=== PATIENT | male | born 1980 | race American Indian/Alaskan Native ===

== ENCOUNTER 2017-05-22 16:17 | Emergency (ER) | payer MEDICARE ==
[2017-05-22 16:41] VITALS: BP 132/81
--- NOTE | 2017-05-22 16:41 | Emergency Department Report ---
Stated Complaint: PARANOID SHCIZOPHRENIA Time Seen by Provider: 05/22/17 16:39 - HPI History of Present Illness: PT states he has a hx of paranoid schizophrenic but he does not know why. PT states he has a prescription for medicine. PT brought into the ED with his uncle who states he has not been taking his medication. - ROS Review of Systems: + tangential thought process + audio hallucination - Exam Physical Exam: pt alert rapid speech MSE screening note: Focused history and physical exam performed. Due to findings the following was ordered: mhe, labs ED Disposition for MSE Condition: Stable
[2017-05-22 17:29] LABS: Basophils % (Auto) 0.7 % (0.0-1.8); Eosinophils % (Auto) 2.6 % (0.0-4.3); Hematocrit 43.3 % (35.5-45.6); Hemoglobin 14.6 gm/dl (11.8-15.2); Mean Corpuscular HGB Conc 34 % (32-34); Mean Corpuscular Hemoglobin 31 pg (28-32); Mean Corpuscular Volume 91 fl (84-94); Platelet Count 207 K/mm3 (140-440); Red Blood Count 4.78 M/mm3 (3.65-5.03); White Blood Count 6.1 K/mm3 (4.5-11.0)
[2017-05-22 17:41] LABS: Alanine Aminotransferase 9 units/L (7-56); Albumin 4.5 g/dL (3.9-5); Albumin/Globulin Ratio 1.7 %; Alkaline Phosphatase 54 units/L (35-129); Anion Gap 17 mmol/L; Blood Urea Nitrogen 16 mg/dL (9-20); Calcium 9.1 mg/dL (8.4-10.2); Carbon Dioxide 28 mmol/L (22-30); Chloride 97.9 mmol/L (98-107); Glucose 91 mg/dL (75-100); Potassium 4.5 mmol/L (3.6-5.0); Sodium 138 mmol/L (137-145); Total Protein 7.2 g/dL (6.3-8.2)
[2017-05-22 17:45] LABS: Urine Drugs of Abuse Note Disclamer
[2017-05-22 18:12] LABS: Bilirubin,Urine NEG (Negative); Blood,Urine NEG (Negative); Ketones,Urine NEG (Negative); Leukocyte Esterase,Urine NEG (Negative); Mucus,Urine FEW /HPF; Nitrite,Urine NEG (Negative); Protein,Urine <15 mg/dL mg/dL (Negative); WBC,Urine < 1.0 /HPF (0.0-6.0)
== END 2017-05-22 22:10 | disposition left against medical advice (07) ==
LOC: ED 16:17
DX: F20.0 Paranoid schizophrenia (principal); R44.0 Auditory hallucinations; Z53.21 Procedure and treatment not carried out due to patient leaving prior to being seen by health care provider
CPT/HCPCS: 36415; 80053; 80307; 81001; 85025; G0480; 80320

== ENCOUNTER 2017-08-15 00:09 | Emergency (ER) | payer MEDICARE ==
[2017-08-15 00:34] VITALS: BP 127/69
== END 2017-08-15 01:30 | disposition left against medical advice (07) ==
LOC: ED 00:09
DX: F29 Unspecified psychosis not due to a substance or known physiological condition (principal); Z53.21 Procedure and treatment not carried out due to patient leaving prior to being seen by health care provider

== ENCOUNTER 2017-08-25 10:25 | Emergency (ER) | payer MEDICARE ==
--- NOTE | 2017-08-25 11:25 | Emergency Department Report ---
ED Lower Extremity HPI - General Chief Complaint: Extremity Problem,Nontraumatic Stated Complaint: FEET CALLUSES Time Seen by Provider: 08/25/17 11:23 Source: patient Mode of arrival: Ambulatory Limitations: No Limitations - History of Present Illness Initial Comments: 36-year-old male past medical history paranoid schizophrenia presents with complaint of chronic calluses on his feet. Patient is requesting a prescription for Neosporin. Patient denies fevers or chills denies severe pain but states that he gets dull aching pain from time to time. Patient states that he spent a prolonged period of time on his feet. Denies pus drainage. Complaint: other (foto callouses) Injury: Foot: Right, Left - Related Data Home Medications Medication Instructions Recorded Confirmed Last Taken Trazodone HCl [traZODone] 300 mg PO BID 04/19/14 05/28/16 07/27/14 Previous Rx's Medication Instructions Recorded Last Taken Type buPROPion [Wellbutrin] 100 mg PO BID #60 tablet 08/05/16 Unknown Rx Butenafine HCl [Lotrimin Ultra] 1 applicatio TP QDAY #1 cream..g. 08/25/17 Unknown Rx Menthol [Gold Weber Medicated Foot] 1 applicatio TP QDAY #1 powder 08/25/17 Unknown Rx Neomycin/Bacitracin/Polymyxinb 1 applicatio TP BID #1 oint...g. 08/25/17 Unknown Rx [Neosporin Antibiotic Ointment] Allergies Allergy/AdvReac Type Severity Reaction Status Date / Time risperidone [From Risperdal] Allergy Shortness Verified 08/25/17 11:09 of Breath tomato Allergy Rash Verified 08/25/17 11:09 ED Review of Systems ROS: Stated complaint: FEET CALLUSES Other details as noted in HPI Constitutional: denies: chills, fever Eyes: denies: eye pain, eye discharge, vision change ENT: denies: ear pain, throat pain Respiratory: denies: cough, shortness of breath, wheezing Cardiovascular: denies: chest pain, palpitations Endocrine: no symptoms reported Gastrointestinal: denies: abdominal pain, nausea, diarrhea Genitourinary: denies: urgency, dysuria Musculoskeletal: denies: back pain, joint swelling, arthralgia Skin: denies: rash, lesions Neurological: denies: headache, weakness, paresthesias Psychiatric: denies: anxiety, depression Hematological/Lymphatic: denies: easy bleeding, easy bruising ED Past Medical Hx - Past Medical History Previous Medical History?: No Hx Renal Disease: Yes (Kidney Stones) Hx Sickle Cell Disease: Yes (sickle cell trait) Hx Kidney Stones: Yes Hx Psychiatric Treatment: Yes (Dede Tree Depression and Schizo) - Surgical History Past Surgical History?: No - Social History Smoking Status: Never Smoker Substance Use Type: None - Medications Home Medications: Home Medications Medication Instructions Recorded Confirmed Last Taken Type Trazodone HCl [traZODone] 300 mg PO BID 04/19/14 05/28/16 07/27/14 History buPROPion [Wellbutrin] 100 mg PO BID #60 tablet 08/05/16 Unknown Rx Butenafine HCl [Lotrimin Ultra] 1 applicatio TP QDAY #1 cream..g. 08/25/17 Unknown Rx Menthol [Gold Weber Medicated Foot] 1 applicatio TP QDAY #1 powder 08/25/17 Unknown Rx Neomycin/Bacitracin/Polymyxinb 1 applicatio TP BID #1 oint...g. 08/25/17 Unknown Rx [Neosporin Antibiotic Ointment] ED Physical Exam - General Limitations: No Limitations General appearance: alert, in no apparent distress - Head Head exam: Present: atraumatic, normocephalic - Eye Eye exam: Present: normal appearance, PERRL, EOMI - ENT ENT exam: Present: mucous membranes moist - Neck Neck exam: Present: normal inspection - Respiratory Respiratory exam: Present: normal lung sounds bilaterally. Absent: respiratory distress - Cardiovascular Cardiovascular Exam: Present: regular rate, normal rhythm. Absent: systolic murmur, diastolic murmur, rubs, gallop - GI/Abdominal GI/Abdominal exam: Present: soft, normal bowel sounds - Rectal Rectal exam: Present: deferred - Extremities Exam Extremities exam: Present: normal inspection, other (athlete's foot bilaterally. Plaques on feet suggestive of fungal infection bilaterally) - Back Exam Back exam: Present: normal inspection - Neurological Exam Neurological exam: Present: alert, oriented X3, CN II-XII intact, normal gait - Psychiatric Psychiatric exam: Present: normal affect, normal mood - Skin Skin exam: Present: warm, dry, intact, normal color. Absent: rash ED Course Vital Signs 08/25/17 11:10 Temperature 98.1 F Pulse Rate 105 H Respiratory 18 Rate Blood Pressure 130/80 O2 Sat by Pulse 98 Oximetry ED Lower Extremity MDM - Medical Decision Making A/P: Athlete's foot, foot calluses 1-gold weber foot powder, lotrimin. No signs of cellulitis on examination of feet. Distal pulses intact. Patient ambulatory without assistance. 2-follow up with primary care and podiatry 3- I advised patient to do warm foot soaks at night if he has foot discomfort. Can take ibuprofen [id number]. 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 Critical care attestation.: If time is entered above; I have spent that time in minutes in the direct care of this critically ill patient, excluding procedure time. ED Disposition Clinical Impression: Athletes foot Qualifiers: Laterality: bilateral Qualified Code(s): B35.3 - Tinea pedis Disposition: DC-01 TO HOME OR SELFCARE Is pt being admited?: No Does the pt Need Aspirin: No Condition: Stable Instructions: Tinea Pedis (ED) Prescriptions: Butenafine HCl [Lotrimin Ultra] 1 applicatio TP QDAY #1 cream..g. Menthol [Gold Weber Medicated Foot] 1 applicatio TP QDAY #1 powder Neomycin/Bacitracin/Polymyxinb [Neosporin Antibiotic Ointment] 1 applicatio TP BID #1 oint...g. Referrals: REGAN CAMP DPM [Staff Physician] - 3-5 Days [facility] [Provider Group] - 3-5 Days Forms: Work/School Release Form(ED) Time of Disposition: 11:44
[2017-08-25 11:54] VITALS: BP 128/78
== END 2017-08-25 11:53 | disposition home or self-care (01) ==
LOC: ED 10:25
DX: B35.3 Tinea pedis (principal); F20.9 Schizophrenia, unspecified; F32.9 Major depressive disorder, single episode, unspecified
CPT/HCPCS: 99282

== ENCOUNTER 2017-08-25 18:25 | Emergency (ER) | payer MEDICARE ==
[2017-08-25 18:36] VITALS: BP 108/54
== END 2017-08-25 18:30 | disposition left against medical advice (07) ==
LOC: ED 18:25
DX: F60.0 Paranoid personality disorder (principal); Z53.21 Procedure and treatment not carried out due to patient leaving prior to being seen by health care provider

== ENCOUNTER 2017-08-25 20:37 | Emergency (ER) | payer MEDICARE ==
[2017-08-25 20:59] VITALS: BP 110/80
--- NOTE | 2017-08-25 23:50 | Emergency Department Report ---
ED Psych HPI - General Chief Complaint: Psych Stated Complaint: MH Time Seen by Provider: 08/25/17 23:18 Source: patient Mode of arrival: Ambulatory - History of Present Illness Initial Comments: 36 YO MALE WITH DISORGANIZED THOUGHTS AND IT IS UNCLEAR WHY HE IS HERE. HE DENIES SI/HI -: unknown Associated Psychiatric Symptoms: racing thoughts History of same: Yes Quality: constant - Related Data Home Medications Medication Instructions Recorded Confirmed Last Taken Trazodone HCl [traZODone] 300 mg PO BID 04/19/14 05/28/16 07/27/14 Previous Rx's Medication Instructions Recorded Last Taken Type buPROPion [Wellbutrin] 100 mg PO BID #60 tablet 08/05/16 Unknown Rx Butenafine HCl [Lotrimin Ultra] 1 applicatio TP QDAY #1 cream..g. 08/25/17 Unknown Rx Menthol [Gold Bryan Medicated Foot] 1 applicatio TP QDAY #1 powder 08/25/17 Unknown Rx Neomycin/Bacitracin/Polymyxinb 1 applicatio TP BID #1 oint...g. 08/25/17 Unknown Rx [Neosporin Antibiotic Ointment] Allergies Allergy/AdvReac Type Severity Reaction Status Date / Time risperidone [From Risperdal] Allergy Shortness Verified 08/25/17 11:09 of Breath tomato Allergy Rash Verified 08/25/17 11:09 ED Review of Systems ROS: Stated complaint: MH Other details as noted in HPI Constitutional: denies: chills, fever Eyes: denies: eye pain, eye discharge, vision change ENT: denies: ear pain, throat pain Respiratory: denies: cough, shortness of breath, wheezing Cardiovascular: denies: chest pain, palpitations Endocrine: no symptoms reported Gastrointestinal: denies: abdominal pain, nausea, diarrhea Genitourinary: denies: urgency, dysuria Musculoskeletal: denies: back pain, joint swelling, arthralgia Skin: denies: rash, lesions Neurological: denies: headache, weakness, paresthesias Psychiatric: denies: anxiety, depression Hematological/Lymphatic: denies: easy bleeding, easy bruising ED Past Medical Hx - Past Medical History Previous Medical History?: Yes Hx Renal Disease: Yes (Kidney Stones) Hx Sickle Cell Disease: Yes (sickle cell trait) Hx Kidney Stones: Yes Hx Psychiatric Treatment: Yes (Dede Tree Depression and Schizo) - Surgical History Past Surgical History?: Yes Additional Surgical History: CIRCUMCISION - Social History Smoking Status: Current Every Day Smoker Substance Use Type: None - Medications Home Medications: Home Medications Medication Instructions Recorded Confirmed Last Taken Type Trazodone HCl [traZODone] 300 mg PO BID 04/19/14 05/28/16 07/27/14 History buPROPion [Wellbutrin] 100 mg PO BID #60 tablet 08/05/16 Unknown Rx Butenafine HCl [Lotrimin Ultra] 1 applicatio TP QDAY #1 cream..g. 08/25/17 Unknown Rx Menthol [Gold Bryan Medicated Foot] 1 applicatio TP QDAY #1 powder 08/25/17 Unknown Rx Neomycin/Bacitracin/Polymyxinb 1 applicatio TP BID #1 oint...g. 08/25/17 Unknown Rx [Neosporin Antibiotic Ointment] ED Physical Exam - General Limitations: Other General appearance: alert, in no apparent distress - Head Head exam: Present: atraumatic, normocephalic - Eye Eye exam: Present: normal appearance - ENT ENT exam: Present: mucous membranes moist - Neck Neck exam: Present: normal inspection - Respiratory Respiratory exam: Present: normal lung sounds bilaterally. Absent: respiratory distress - Cardiovascular Cardiovascular Exam: Present: regular rate, normal rhythm. Absent: systolic murmur, diastolic murmur, rubs, gallop - GI/Abdominal GI/Abdominal exam: Present: soft, normal bowel sounds - Rectal Rectal exam: Present: deferred - Extremities Exam Extremities exam: Present: normal inspection - Back Exam Back exam: Present: normal inspection - Neurological Exam Neurological exam: Present: alert, oriented X3 - Psychiatric Psychiatric exam: Present: normal affect, manic - Skin Skin exam: Present: warm, dry, intact, normal color. Absent: rash ED Course Vital Signs 08/25/17 20:52 Temperature 98 F Pulse Rate 87 Respiratory 18 Rate Blood Pressure 110/80 O2 Sat by Pulse 99 Oximetry - Reevaluation(s) Reevaluation #1: 08/26/17 04:11 1013 AND TRANSFER PAPERS HAVE BEEN SIGNED FOR ANCHOR. DR PAUL HAS ACCEPTED HIM ED Medical Decision Making - Lab Data Result diagrams: 08/26/17 00:02 08/26/17 00:02 Critical care attestation.: If time is entered above; I have spent that time in minutes in the direct care of this critically ill patient, excluding procedure time. ED Disposition Clinical Impression: Schizophrenia, acute Psychosis Qualifiers: Psychosis type: unspecified psychosis type Qualified Code(s): F29 - Unspecified psychosis not due to a substance or known physiological condition Disposition: DC/TX-65 PSY HOSP/PSY UNIT Is pt being admited?: Yes Does the pt Need Aspirin: No Condition: Stable Referrals: PRIMARY CARE, [Primary Care Provider] - 3-5 Days Time of Disposition: 04:10 (DR PAUL FROM [facility] HAS ACCEPTED HIM)
[2017-08-26 00:29] LABS: Basophils % (Auto) 0.7 % (0.0-1.8); Eosinophils % (Auto) 4.3 % (0.0-4.3); Hemoglobin 13.5 gm/dl (11.8-15.2); Mean Corpuscular HGB Conc 33 % (32-34); Mean Corpuscular Hemoglobin 30 pg (28-32); Mean Corpuscular Volume 92 fl (84-94); Platelet Count 222 K/mm3 (140-440); Red Blood Count 4.47 M/mm3 (3.65-5.03); Red Cell Distribution Width 14.4 % (13.2-15.2); White Blood Count 5.1 K/mm3 (4.5-11.0)
[2017-08-26 00:40] LABS: Alanine Aminotransferase 18 units/L (7-56); Albumin 4.3 g/dL (3.9-5); Albumin/Globulin Ratio 1.8 %; Alkaline Phosphatase 50 units/L (35-129); Anion Gap 15 mmol/L; BUN/Creatinine Ratio 20; Blood Urea Nitrogen 16 mg/dL (9-20); Calcium 8.5 mg/dL (8.4-10.2); Carbon Dioxide 27 mmol/L (22-30); Chloride 102.6 mmol/L (98-107); Glucose 92 mg/dL (75-100); Potassium 3.8 mmol/L (3.6-5.0); Sodium 141 mmol/L (137-145); Total Protein 6.7 g/dL (6.3-8.2)
[2017-08-26 01:49] LABS: Urine Drugs of Abuse Note Disclamer
[2017-08-26 02:09] LABS: Bilirubin,Urine NEG (Negative); Blood,Urine SM (Negative); Ketones,Urine NEG (Negative); Leukocyte Esterase,Urine NEG (Negative); Mucus,Urine FEW /HPF; Nitrite,Urine NEG (Negative); Protein,Urine <15 mg/dL mg/dL (Negative); Urobilinogen,Urine < 2.0 mg/dL (<2.0)
== END 2017-08-26 05:26 ==
LOC: EEVIPCON 20:37 → ED 20:37
DX: F20.9 Schizophrenia, unspecified (principal); F29 Unspecified psychosis not due to a substance or known physiological condition; D57.3 Sickle-cell trait; F17.200 Nicotine dependence, unspecified, uncomplicated; Z91.018 Allergy to other foods
CPT/HCPCS: 36415; 80053; 80307; 81001; 85025; 99285; G0480; 80320

== ENCOUNTER 2017-09-11 17:32 | Emergency (ER) | payer MEDICARE ==
[2017-09-11 18:15] VITALS: BP 130/70
== END 2017-09-11 23:50 | disposition left against medical advice (07) ==
LOC: ED 17:32
DX: F29 Unspecified psychosis not due to a substance or known physiological condition (principal); Z53.21 Procedure and treatment not carried out due to patient leaving prior to being seen by health care provider

== ENCOUNTER 2017-09-13 13:14 | Emergency (ER) | payer MEDICARE ==
[2017-09-13 13:23] VITALS: BP 120/81
[2017-09-13 13:59] LABS: Bilirubin,Urine NEG (Negative); Blood,Urine SM (Negative); Color,Urine Yellow (Yellow); Mucus,Urine 1+ /HPF; Nitrite,Urine NEG (Negative); Protein,Urine <15 mg/dL mg/dL (Negative)
[2017-09-13 14:10] LABS: Amphetamine Screen,Urine PRESUMPTIVE NEGATIVE; Benzodiazepines Screen,Urine PRESUMPTIVE NEGATIVE; Cannabinoid Screen,Urine PRESUMPTIVE NEGATIVE; Methadone Screen,Urine PRESUMPTIVE NEGATIVE; Opiate Screen,Urine PRESUMPTIVE NEGATIVE
[2017-09-13 14:13] LABS: Eosinophils # (Auto) 0.2 K/mm3 (0.0-0.4); Hematocrit 41.7 % (35.5-45.6); Hemoglobin 14.1 gm/dl (11.8-15.2); Lymphocytes # (Auto) 2.1 K/mm3 (1.2-5.4); Lymphocytes % (Auto) 45.1 % (13.4-35.0); Mean Corpuscular HGB Conc 34 % (32-34); Mean Corpuscular Hemoglobin 31 pg (28-32); Mean Corpuscular Volume 92 fl (84-94); Monocytes # (Auto) 0.4 K/mm3 (0.0-0.8); Monocytes % (Auto) 9.1 % (0.0-7.3); Platelet Count 265 K/mm3 (140-440); Red Blood Count 4.54 M/mm3 (3.65-5.03); Red Cell Distribution Width 14.4 % (13.2-15.2)
[2017-09-13 14:27] LABS: BUN/Creatinine Ratio 27; Blood Urea Nitrogen 24 mg/dL (9-20); Calcium 8.9 mg/dL (8.4-10.2); Hemolysis Index 39
[2017-09-13 14:54] LABS: Cocaine Screen,Urine PRESUMPTIVE POSITIVE
== END 2017-09-13 20:00 | disposition left against medical advice (07) ==
LOC: ED 13:14
DX: Z00.8 Encounter for other general examination (principal); Z53.21 Procedure and treatment not carried out due to patient leaving prior to being seen by health care provider; Z79.899 Other long term (current) drug therapy
CPT/HCPCS: 36415; 80048; 80307; 81001; 85025; G0480; 80320

== ENCOUNTER 2017-09-27 22:14 | Emergency (ER) | payer MEDICARE ==
[2017-09-27 22:45] VITALS: BP 185/62
[2017-09-28 01:53] LABS: Hematocrit 43.4 % (35.5-45.6); Hemoglobin 14.4 gm/dl (11.8-15.2); Mean Corpuscular HGB Conc 33 % (32-34); Mean Corpuscular Hemoglobin 30 pg (28-32); Mean Corpuscular Volume 91 fl (84-94); Platelet Count 187 K/mm3 (140-440); Red Blood Count 4.77 M/mm3 (3.65-5.03); Red Cell Distribution Width 14.4 % (13.2-15.2)
[2017-09-28 01:54] LABS: Amphetamine Screen,Urine PRESUMPTIVE NEGATIVE; Benzodiazepines Screen,Urine PRESUMPTIVE NEGATIVE; Cannabinoid Screen,Urine PRESUMPTIVE NEGATIVE; Methadone Screen,Urine PRESUMPTIVE NEGATIVE; Opiate Screen,Urine PRESUMPTIVE NEGATIVE
[2017-09-28 02:05] LABS: Bilirubin,Urine NEG (Negative); Blood,Urine NEG (Negative); Color,Urine Yellow (Yellow); Mucus,Urine FEW /HPF; Nitrite,Urine NEG (Negative); Protein,Urine <15 mg/dL mg/dL (Negative); Urobilinogen,Urine < 2.0 mg/dL (<2.0)
[2017-09-28 02:08] LABS: BUN/Creatinine Ratio 23; Blood Urea Nitrogen 21 mg/dL (9-20); Calcium 8.9 mg/dL (8.4-10.2); Cocaine Screen,Urine PRESUMPTIVE POSITIVE; Hemolysis Index 5
[2017-09-28 05:21] LABS: Basophils % (Manual) 0 % (0.0-1.8); Total Cells Counted 100
[2017-09-28 05:22] LABS: RBC Morphology Normal
== END 2017-09-28 08:00 | disposition left against medical advice (07) ==
LOC: ED 22:14
DX: Z53.21 Procedure and treatment not carried out due to patient leaving prior to being seen by health care provider (principal)
CPT/HCPCS: 36415; 80048; 80307; 81001; 85007; 85025; G0480; 80320

== ENCOUNTER 2017-10-07 20:39 | Emergency (ER) | payer MEDICARE ==
--- NOTE | 2017-10-07 22:29 | Emergency Department Report ---
HPI - General Chief Complaint: Psych Time Seen by Provider: 10/07/17 22:26 - HPI HPI: The patient is a 37-year-old male with a history of schizophrenia, presents for [facility]. The patient presented after being found naked one around an apartment complex. The patient admits to constant severe command auditory hallucinations for the past one day. The patient denies fever, headache , unexplained weight loss or weight gain, heat or cold intolerance, skin, hair, or nail changes, neuro deficits, homicidal ideations. ED Past Medical Hx - Past Medical History Hx Renal Disease: Yes (Kidney Stones) Hx Sickle Cell Disease: No (sickle cell trait) Hx Kidney Stones: Yes Hx Psychiatric Treatment: Yes (Dede Tree Depression and Schizo) - Surgical History Additional Surgical History: CIRCUMCISION - Social History Smoking Status: Current Every Day Smoker Substance Use Type: Cocaine - Medications Home Medications: Home Medications Medication Instructions Recorded Confirmed Last Taken Type Trazodone HCl [traZODone] 300 mg PO BID 04/19/14 05/28/16 07/27/14 History buPROPion [Wellbutrin] 100 mg PO BID #60 tablet 08/05/16 Unknown Rx Butenafine HCl [Lotrimin Ultra] 1 applicatio TP QDAY #1 cream..g. 08/25/17 Unknown Rx Menthol [Gold Bryan Medicated Foot] 1 applicatio TP QDAY #1 powder 08/25/17 Unknown Rx Neomycin/Bacitracin/Polymyxinb 1 applicatio TP BID #1 oint...g. 08/25/17 Unknown Rx [Neosporin Antibiotic Ointment] ED Review of Systems ROS: Stated complaint: MH EVAL Other details as noted in HPI Constitutional: denies: fever ENT: denies: throat or neck pain Respiratory: denies: cough, shortness of breath Cardiovascular: denies: chest pain Endocrine: denies unexplained weight loss or gain Gastrointestinal: denies: abdominal pain, nausea Genitourinary: denies: dysuria Musculoskeletal: denies: leg swelling Skin: denies: rash Neurological: denies: headache Hematological/Lymphatic: denies: easy bleeding or easy bruising Psych: reports haullucinations and hopelessness Physical Exam - Physical Exam Vital Signs: Vital Signs 10/07/17 21:26 Temperature 98.2 F Pulse Rate 84 Respiratory 16 Rate Blood Pressure 132/88 O2 Sat by Pulse 98 Oximetry Physical Exam: General: well-nourished, well-developed, no acute distress Head: Normocephalic, atraumatic Eyes: normal sclera ENT: Mucous membranes are pink and moist Neck: trachea midline, neck supple, No neck stiffness, no cervical adenopathy Respiratory: Breath sounds equal bilaterally, no wheezing, rales, or rhonchi Cardio: S1 and S2 present, no murmurs, rubs, gallops, capillary refill is brisk Abdomen: Normoactive bowel sounds, soft abdomen, no rigidity, no guarding or rebound tenderness Musc: No pitting edema Skin: No rash Neuro: no facial drooping, normal speech Psych: flat affect, poor insight, patient delusional, positive hallucinations ED Course Vital Signs 10/07/17 21:26 Temperature 98.2 F Pulse Rate 84 Respiratory 16 Rate Blood Pressure 132/88 O2 Sat by Pulse 98 Oximetry ED Medical Decision Making - Lab Data Result diagrams: 10/07/17 22:53 10/07/17 22:53 - Medical Decision Making The patient was seen and examined by myself. The patient is placed on a compliance monitor and continuous pulse ox. On initial evaluation, the patient was found to be in no distress. Labs are obtained. Lab results are grossly unremarkable. The patient is medically clear. Mental health is consulted. Mental health evaluates the patient and agrees that the patient is exhibiting signs and symptoms consistent with acute psychosis. A 1013 is completed. The patient will be admitted to a psychiatric facility once bed placement is obtained. Critical care attestation.: If time is entered above; I have spent that time in minutes in the direct care of this critically ill patient, excluding procedure time. ED Disposition Clinical Impression: Schizophrenia, Mood disorder Disposition: DC/TX-65 PSY HOSP/PSY UNIT Is pt being admited?: No Does the pt Need Aspirin: No Condition: Stable Referrals: LAURA COLE MD [Primary Care Provider] - 3-5 Days Time of Disposition: 22:28
[2017-10-07 22:56] LABS: Bacteria,Urine 1+ /HPF (Negative); Bilirubin,Urine NEG (Negative); Blood,Urine SM (Negative); Color,Urine Yellow (Yellow); Mucus,Urine FEW /HPF; Nitrite,Urine NEG (Negative)
[2017-10-07 23:03] LABS: Basophils # (Auto) 0.1 K/mm3 (0.0-0.1); Eosinophils # (Auto) 0.1 K/mm3 (0.0-0.4); Eosinophils % (Auto) 0.8 % (0.0-4.3); Hematocrit 41.2 % (35.5-45.6); Lymphocytes # (Auto) 1.6 K/mm3 (1.2-5.4); Lymphocytes % (Auto) 19.4 % (13.4-35.0); Mean Corpuscular HGB Conc 34 % (32-34); Mean Corpuscular Hemoglobin 30 pg (28-32); Mean Corpuscular Volume 90 fl (84-94); Monocytes # (Auto) 0.7 K/mm3 (0.0-0.8); Platelet Count 240 K/mm3 (140-440); Red Blood Count 4.59 M/mm3 (3.65-5.03); Red Cell Distribution Width 14.2 % (13.2-15.2)
[2017-10-07 23:11] LABS: Amphetamine Screen,Urine PRESUMPTIVE NEGATIVE; Benzodiazepines Screen,Urine PRESUMPTIVE NEGATIVE; Cannabinoid Screen,Urine PRESUMPTIVE NEGATIVE; Methadone Screen,Urine PRESUMPTIVE NEGATIVE; Opiate Screen,Urine PRESUMPTIVE NEGATIVE
[2017-10-07 23:28] LABS: BUN/Creatinine Ratio 20; Blood Urea Nitrogen 16 mg/dL (9-20); Calcium 9.1 mg/dL (8.4-10.2); Hemolysis Index 6
[2017-10-07 23:50] LABS: Cocaine Screen,Urine PRESUMPTIVE POSITIVE
[2017-10-08] MEDS ORDERED: MILK OF MAGNESIA PO PRN (02:08)
[2017-10-08] MEDS ORDERED: ALUM-MAG HYDROX-SIMETH 200-200-20MG/5ML PO PRN (02:08)
[2017-10-08] MEDS ORDERED: TYLENOL PO PRN (02:08)
[2017-10-08 16:30] VITALS: BP 91/62
== END 2017-10-08 16:31 ==
LOC: ED 20:39
DX: F20.9 Schizophrenia, unspecified (principal); F39 Unspecified mood [affective] disorder; F17.200 Nicotine dependence, unspecified, uncomplicated; F14.10 Cocaine abuse, uncomplicated
CPT/HCPCS: 36415; 80048; 80307; 81001; 85025; 99285; G0480; 80320

== ENCOUNTER 2017-11-04 01:11 | Emergency (ER) | payer MEDICARE ==
[2017-11-04 02:10] LABS: Basophils # (Auto) 0.1 K/mm3 (0.0-0.1); Basophils % (Auto) 1.3 % (0.0-1.8); Eosinophils # (Auto) 0.1 K/mm3 (0.0-0.4); Eosinophils % (Auto) 1.1 % (0.0-4.3); Hematocrit 47.3 % (35.5-45.6); Hemoglobin 16.1 gm/dl (11.8-15.2); Lymphocytes # (Auto) 1.7 K/mm3 (1.2-5.4); Lymphocytes % (Auto) 27.7 % (13.4-35.0); Mean Corpuscular HGB Conc 34 % (32-34); Mean Corpuscular Hemoglobin 30 pg (28-32); Mean Corpuscular Volume 89 fl (84-94); Monocytes # (Auto) 0.4 K/mm3 (0.0-0.8); Monocytes % (Auto) 6.6 % (0.0-7.3); Platelet Count 209 K/mm3 (140-440); Red Blood Count 5.32 M/mm3 (3.65-5.03); Red Cell Distribution Width 14.1 % (13.2-15.2)
[2017-11-04 02:31] LABS: BUN/Creatinine Ratio 26; Blood Urea Nitrogen 18 mg/dL (9-20); Calcium 9.2 mg/dL (8.4-10.2); Hemolysis Index 15
--- NOTE | 2017-11-04 02:50 | Emergency Department Report ---
HPI - General Chief Complaint: Psych Time Seen by Provider: 11/04/17 02:16 - HPI HPI: The patient's 37-year-old male presents for evaluation of mental health. The patient reports constant severe sadness, hopelessness, and suicidal ideation for the past 2 days. He also reports associated hallucinations. He states that he knows Solitario Chaney. The patient denies fever, headache, unexplained weight loss or weight gain, heat or cold intolerance, skin, hair, or nail changes, neuro deficits, homicidal ideations, or auditory or visual hallucinations. ED Past Medical Hx - Past Medical History Hx Renal Disease: Yes (Kidney Stones) Hx Sickle Cell Disease: No (sickle cell trait) Hx Kidney Stones: Yes Hx Psychiatric Treatment: Yes (Dede Tree Depression and Schizo) - Surgical History Past Surgical History?: No Additional Surgical History: CIRCUMCISION - Social History Smoking Status: Current Every Day Smoker Substance Use Type: None - Medications Home Medications: Home Medications Medication Instructions Recorded Confirmed Last Taken Type Trazodone HCl [traZODone] 300 mg PO BID 04/19/14 05/28/16 07/27/14 History buPROPion [Wellbutrin] 100 mg PO BID #60 tablet 08/05/16 Unknown Rx Butenafine HCl [Lotrimin Ultra] 1 applicatio TP QDAY #1 cream..g. 08/25/17 Unknown Rx Menthol [Gold Bryan Medicated Foot] 1 applicatio TP QDAY #1 powder 08/25/17 Unknown Rx Neomycin/Bacitracin/Polymyxinb 1 applicatio TP BID #1 oint...g. 08/25/17 Unknown Rx [Neosporin Antibiotic Ointment] ED Review of Systems ROS: Stated complaint: MH EVAL Other details as noted in HPI Constitutional: denies: fever ENT: denies: throat or neck pain Respiratory: denies: cough, shortness of breath Cardiovascular: denies: chest pain Endocrine: denies unexplained weight loss or gain Gastrointestinal: denies: abdominal pain, nausea Genitourinary: denies: dysuria Musculoskeletal: denies: leg swelling Skin: denies: rash Neurological: denies: headache Hematological/Lymphatic: denies: easy bleeding or easy bruising Psych: reports sadness or hopelessness Physical Exam - Physical Exam Vital Signs: Vital Signs 11/04/17 01:21 Temperature 97.4 F L Pulse Rate 81 Respiratory 16 Rate Blood Pressure 139/94 O2 Sat by Pulse 98 Oximetry Physical Exam: General: well-nourished, well-developed, no acute distress Head: Normocephalic, atraumatic Eyes: normal sclera ENT: Mucous membranes are pale and dry Neck: trachea midline, neck supple, No neck stiffness, no cervical adenopathy Respiratory: Breath sounds equal bilaterally, no wheezing, rales, or rhonchi Cardio: S1 and S2 present, no murmurs, rubs, gallops, capillary refill is delayed Abdomen: Normoactive bowel sounds, soft abdomen, no rigidity, no guarding or rebound tenderness Musc: No pitting edema Skin: No rash Neuro: no facial drooping, normal speech Psych: Flat affect, poor insight, delusional, depressed mood, positive suicidal ideations ED Course Vital Signs 11/04/17 01:21 Temperature 97.4 F L Pulse Rate 81 Respiratory 16 Rate Blood Pressure 139/94 O2 Sat by Pulse 98 Oximetry ED Medical Decision Making - Lab Data Result diagrams: 11/04/17 01:36 11/04/17 01:36 - Medical Decision Making The patient was seen and examined by myself. The patient is placed on a classroom monitor and continuous pulse ox. On initial evaluation, the patient was found to be in no distress. Labs are obtained. Lab results exhibited elevated hemoglobin and hematocrit, and otherwise are grossly unremarkable. The patient is medically clear. Mental health is consulted. Mental health evaluates the patient and agrees that the patient is at risk of harm to self. A 1013 is completed. The patient will be admitted to a psychiatric facility once bed placement is obtained. Critical care attestation.: If time is entered above; I have spent that time in minutes in the direct care of this critically ill patient, excluding procedure time. ED Disposition Clinical Impression: Suicidal ideation, Acute psychosis Disposition: DC/TX-65 PSY HOSP/PSY UNIT Is pt being admited?: No Does the pt Need Aspirin: No Condition: Stable Referrals: PRIMARY CARE, [Primary Care Provider] - 3-5 Days Time of Disposition: 02:52
[2017-11-04] MEDS ORDERED: ALUM-MAG HYDROX-SIMETH 200-200-20MG/5ML PO PRN (03:21)
[2017-11-04] MEDS ORDERED: TYLENOL PO PRN (03:21)
[2017-11-04] MEDS ORDERED: MILK OF MAGNESIA PO PRN (03:21)
[2017-11-04 06:19] LABS: Bilirubin,Urine NEG (Negative); Blood,Urine NEG (Negative); Color,Urine Yellow (Yellow); Mucus,Urine FEW /HPF; Protein,Urine <15 mg/dL mg/dL (Negative)
[2017-11-04 06:34] LABS: Amphetamine Screen,Urine PRESUMPTIVE NEGATIVE; Benzodiazepines Screen,Urine PRESUMPTIVE NEGATIVE; Cannabinoid Screen,Urine PRESUMPTIVE NEGATIVE; Methadone Screen,Urine PRESUMPTIVE NEGATIVE; Opiate Screen,Urine PRESUMPTIVE NEGATIVE
[2017-11-04 06:57] LABS: Cocaine Screen,Urine PRESUMPTIVE POSITIVE
[2017-11-04 16:43] VITALS: BP 105/62
== END 2017-11-04 16:42 ==
LOC: ED 01:11 → EEVIPCON 01:11 → ED 16:42
DX: F23 Brief psychotic disorder (principal); R45.851 Suicidal ideations; F32.9 Major depressive disorder, single episode, unspecified; F17.200 Nicotine dependence, unspecified, uncomplicated; Z88.8 Allergy status to other drugs, medicaments and biological substances; Z91.018 Allergy to other foods
CPT/HCPCS: 36415; 80048; 80307; 81001; 85025; 99285; G0480; 80320

== ENCOUNTER 2017-11-12 00:41 | Emergency (ER) | payer MEDICARE ==
[2017-11-12 07:34] VITALS: BP 116/63
--- NOTE | 2017-11-12 08:35 | Emergency Department Report ---
ED General Adult HPI - General Chief complaint: Medical Clearance Stated complaint: MENTAL HEALTH Time Seen by Provider: 11/12/17 07:52 Source: patient Mode of arrival: Ambulatory Limitations: No Limitations - History of Present Illness Initial comments: 37-year-old male with no medical complaints. He states he's been homeless since September. He freely admits that he came to the emergency department because of the rain last night. He states he is hungry. He denies HIV. He admits to noncompliance with psychiatric medications (Risperdal). However, he has had no psychiatric symptoms such as depression, hallucinosis, delusions, SI or HI. He is very forthcoming about his lack of symptoms or medical complaints. -: month(s) - Related Data Home Medications Medication Instructions Recorded Confirmed Last Taken Trazodone HCl [traZODone] 300 mg PO BID 04/19/14 05/28/16 07/27/14 Previous Rx's Medication Instructions Recorded Last Taken Type buPROPion [Wellbutrin] 100 mg PO BID #60 tablet 08/05/16 Unknown Rx Butenafine HCl [Lotrimin Ultra] 1 applicatio TP QDAY #1 cream..g. 08/25/17 Unknown Rx Menthol [Gold Bryan Medicated Foot] 1 applicatio TP QDAY #1 powder 08/25/17 Unknown Rx Neomycin/Bacitracin/Polymyxinb 1 applicatio TP BID #1 oint...g. 08/25/17 Unknown Rx [Neosporin Antibiotic Ointment] Allergies Allergy/AdvReac Type Severity Reaction Status Date / Time risperidone [From Risperdal] Allergy Shortness Verified 10/07/17 21:26 of Breath tomato Allergy Rash Verified 10/07/17 21:26 ED Review of Systems ROS: Stated complaint: MENTAL HEALTH Other details as noted in HPI Constitutional: denies: chills, fever Eyes: denies: eye pain, eye discharge, vision change ENT: denies: ear pain, throat pain Respiratory: denies: cough, shortness of breath, wheezing Cardiovascular: denies: chest pain, palpitations Endocrine: no symptoms reported Gastrointestinal: denies: abdominal pain, nausea, diarrhea Genitourinary: denies: urgency, dysuria Musculoskeletal: denies: back pain, joint swelling, arthralgia Skin: denies: rash, lesions Neurological: denies: headache, weakness, paresthesias Psychiatric: denies: anxiety, depression Hematological/Lymphatic: denies: easy bleeding, easy bruising ED Past Medical Hx - Past Medical History Previous Medical History?: Yes Hx Renal Disease: Yes (Kidney Stones) Hx Sickle Cell Disease: No (sickle cell trait) Hx Kidney Stones: Yes Hx Psychiatric Treatment: Yes ([place] Depression and Schizo) - Surgical History Past Surgical History?: Yes Additional Surgical History: CIRCUMCISION - Social History Smoking Status: Current Every Day Smoker Substance Use Type: None - Medications Home Medications: Home Medications Medication Instructions Recorded Confirmed Last Taken Type Trazodone HCl [traZODone] 300 mg PO BID 04/19/14 05/28/16 07/27/14 History buPROPion [Wellbutrin] 100 mg PO BID #60 tablet 08/05/16 Unknown Rx Butenafine HCl [Lotrimin Ultra] 1 applicatio TP QDAY #1 cream..g. 08/25/17 Unknown Rx Menthol [Gold Bryan Medicated Foot] 1 applicatio TP QDAY #1 powder 08/25/17 Unknown Rx Neomycin/Bacitracin/Polymyxinb 1 applicatio TP BID #1 oint...g. 08/25/17 Unknown Rx [Neosporin Antibiotic Ointment] ED Physical Exam - General Limitations: No Limitations General appearance: alert, in no apparent distress - Head Head exam: Present: atraumatic, normocephalic - Eye Eye exam: Present: normal appearance, PERRL, EOMI. Absent: scleral icterus - ENT ENT exam: Present: mucous membranes moist - Neck Neck exam: Present: normal inspection. Absent: tenderness, meningismus - Respiratory Respiratory exam: Present: normal lung sounds bilaterally. Absent: respiratory distress - Cardiovascular Cardiovascular Exam: Present: regular rate, normal rhythm. Absent: systolic murmur, diastolic murmur, rubs, gallop - GI/Abdominal GI/Abdominal exam: Present: soft, normal bowel sounds. Absent: distended, tenderness, guarding, rebound - Rectal Rectal exam: Present: deferred - Extremities Exam Extremities exam: Present: normal inspection - Back Exam Back exam: Present: normal inspection - Neurological Exam Neurological exam: Present: alert, oriented X3, CN II-XII intact. Absent: motor sensory deficit - Psychiatric Psychiatric exam: Present: normal affect, normal mood - Skin Skin exam: Present: warm, dry, intact, normal color. Absent: rash ED Course Vital Signs 11/12/17 11/12/17 11/12/17 00:51 05:37 06:54 Temperature 98.4 F Pulse Rate 118 H Respiratory 17 17 Rate Blood Pressure 129/88 109/57 Blood Pressure [Right] O2 Sat by Pulse 99 99 97 Oximetry 11/12/17 11/12/17 11/12/17 06:58 07:00 07:15 Temperature 98.3 F Pulse Rate 88 Respiratory 16 Rate Blood Pressure 109/58 116/63 Blood Pressure 109/57 [Right] O2 Sat by Pulse 99 99 Oximetry Critical care attestation.: If time is entered above; I have spent that time in minutes in the direct care of this critically ill patient, excluding procedure time. ED Disposition Clinical Impression: Homelessness Disposition: DC-01 TO HOME OR SELFCARE Is pt being admited?: No Does the pt Need Aspirin: No Condition: Stable Referrals: PRIMARY CAREMD [Primary Care Provider] - 3-5 Days [facility] [Provider Group] - 3-5 Days Time of Disposition: 08:34
== END 2017-11-12 09:28 | disposition home or self-care (01) ==
LOC: ED 00:41
DX: F23 Brief psychotic disorder (principal); Z59.0 Homelessness; F17.200 Nicotine dependence, unspecified, uncomplicated; F32.9 Major depressive disorder, single episode, unspecified; Z91.018 Allergy to other foods; Z87.442 Personal history of urinary calculi
CPT/HCPCS: 99282

== ENCOUNTER 2017-11-28 09:49 | Emergency (ER) | payer MEDICARE ==
[2017-11-28 11:39] VITALS: BP 150/72
[2017-11-28 12:04] LABS: Basophils % (Auto) 0.2 % (0.0-1.8); Eosinophils # (Auto) 0.2 K/mm3 (0.0-0.4); Eosinophils % (Auto) 4.1 % (0.0-4.3); Hematocrit 49.6 % (35.5-45.6); Hemoglobin 16.6 gm/dl (11.8-15.2); Lymphocytes # (Auto) 2.1 K/mm3 (1.2-5.4); Lymphocytes % (Auto) 38.3 % (13.4-35.0); Mean Corpuscular HGB Conc 34 % (32-34); Mean Corpuscular Hemoglobin 30 pg (28-32); Mean Corpuscular Volume 90 fl (84-94); Monocytes # (Auto) 0.6 K/mm3 (0.0-0.8); Monocytes % (Auto) 10.8 % (0.0-7.3); Platelet Count 254 K/mm3 (140-440); Red Blood Count 5.53 M/mm3 (3.65-5.03); Red Cell Distribution Width 14.1 % (13.2-15.2)
[2017-11-28 12:18] LABS: BUN/Creatinine Ratio 14; Blood Urea Nitrogen 13 mg/dL (9-20); Calcium 9.5 mg/dL (8.4-10.2); Hemolysis Index 36
== END 2017-11-28 12:00 | disposition left against medical advice (07) ==
LOC: ED 09:49
DX: F20.9 Schizophrenia, unspecified (principal); F32.9 Major depressive disorder, single episode, unspecified; Z53.21 Procedure and treatment not carried out due to patient leaving prior to being seen by health care provider; Z79.899 Other long term (current) drug therapy
CPT/HCPCS: 36415; 80048; 85025; G0480; 80320

== ENCOUNTER 2017-12-16 02:20 | Emergency (ER) | payer MEDICARE ==
[2017-12-16 03:03] LABS: Basophils # (Auto) 0.1 K/mm3 (0.0-0.1); Basophils % (Auto) 1.4 % (0.0-1.8); Eosinophils # (Auto) 0.1 K/mm3 (0.0-0.4); Hematocrit 43.3 % (35.5-45.6); Lymphocytes # (Auto) 2.3 K/mm3 (1.2-5.4); Lymphocytes % (Auto) 42.6 % (13.4-35.0); Mean Corpuscular HGB Conc 35 % (32-34); Mean Corpuscular Hemoglobin 30 pg (28-32); Mean Corpuscular Volume 87 fl (84-94); Monocytes # (Auto) 0.5 K/mm3 (0.0-0.8); Monocytes % (Auto) 8.7 % (0.0-7.3); Platelet Count 211 K/mm3 (140-440); Red Blood Count 4.97 M/mm3 (3.65-5.03); Red Cell Distribution Width 14.2 % (13.2-15.2)
[2017-12-16 03:26] LABS: BUN/Creatinine Ratio 19; Blood Urea Nitrogen 17 mg/dL (9-20); Calcium 8.6 mg/dL (8.4-10.2); Hemolysis Index 2
[2017-12-16 04:20] VITALS: BP 114/47
--- NOTE | 2017-12-16 07:12 | Emergency Department Report ---
HPI - General Chief Complaint: Psych Time Seen by Provider: 12/16/17 04:13 - HPI HPI: The patient is a 37-year-old male well-known to this emergency department, who presents for evaluation of mental health. The patient reports recurrence of sadness and depression last night, mild, constant, improved with sleep. He denies this patient's suicidal ideations. He submits that although he reported to a staff member that he had experienced recent suicidal ideation, he has not experienced suicidal ideation and only stated so due to being homeless and wanting a place to sleep for the night. He is adamant that he has no thoughts of suicide, and has not recently, and has no plan to harm himself in any way. The patient denies fever, headache, unexplained weight loss or weight gain, heat or cold intolerance, skin, hair, or nail changes, neuro deficits, homicidal ideations, or auditory or visual hallucinations. ED Past Medical Hx - Past Medical History Hx Renal Disease: Yes (Kidney Stones) Hx Sickle Cell Disease: Yes (sickle cell trait) Hx Kidney Stones: Yes Hx Psychiatric Treatment: Yes (Depression and Schizophrenia) - Surgical History Additional Surgical History: CIRCUMCISION - Social History Smoking Status: Current Every Day Smoker Substance Use Type: None - Medications Home Medications: Home Medications Medication Instructions Recorded Confirmed Last Taken Type Trazodone HCl [traZODone] 300 mg PO BID 04/19/14 12/16/17 07/27/14 History buPROPion [Wellbutrin] 100 mg PO BID #60 tablet 08/05/16 12/16/17 Unknown Rx Butenafine HCl [Lotrimin Ultra] 1 applicatio TP QDAY #1 cream..g. 08/25/1712/16 Unknown Rx Menthol [Gold Bryan Medicated Foot] 1 applicatio TP QDAY #1 powder 08/25/1712/16 Unknown Rx Neomycin/Bacitracin/Polymyxinb 1 applicatio TP BID #1 oint...g. 08/25/17 Unknown Rx [Neosporin Antibiotic Ointment] ED Review of Systems ROS: Stated complaint: MH EVAL Other details as noted in HPI Constitutional: denies: fever ENT: denies: throat or neck pain Respiratory: denies: cough, shortness of breath Cardiovascular: denies: chest pain Endocrine: denies unexplained weight loss or gain Gastrointestinal: denies: abdominal pain, nausea Genitourinary: denies: dysuria Musculoskeletal: denies: leg swelling Skin: denies: rash Neurological: denies: headache Hematological/Lymphatic: denies: easy bleeding or easy bruising Psych: reports sadness or hopelessness Physical Exam - Physical Exam Vital Signs: Vital Signs 12/16/17 12/16/17 02:36 03:49 Temperature 98 F 97.6 F Pulse Rate 79 Respiratory 16 Rate Blood Pressure 114/47 O2 Sat by Pulse 97 Oximetry Physical Exam: General: well-nourished, well-developed, no acute distress Head: Normocephalic, atraumatic Eyes: normal sclera ENT: Mucous membranes are pink and moist Neck: trachea midline, neck supple, No neck stiffness, no cervical adenopathy Respiratory: Breath sounds equal bilaterally, no wheezing, rales, or rhonchi Cardio: S1 and S2 present, no murmurs, rubs, gallops, capillary refill is brisk Abdomen: Normoactive bowel sounds, soft abdomen, no rigidity, no guarding or rebound tenderness Musc: No pitting edema Skin: No rash Neuro: no facial drooping, normal speech Psych: Normal affect, normal mood, normal insight, no suicidal or homicidal ideations, no hallucinations ED Course Vital Signs 12/16/17 12/16/17 02:36 03:49 Temperature 98 F 97.6 F Pulse Rate 79 Respiratory 16 Rate Blood Pressure 114/47 O2 Sat by Pulse 97 Oximetry ED Medical Decision Making - Lab Data Result diagrams: 12/16/17 02:45 12/16/17 02:45 - Medical Decision Making The patient was seen and examined by myself. The patient is placed on a drapery head former and continuous pulse ox. On initial evaluation, the patient was found to be in no distress. Labs are obtained. Lab results are grossly unremarkable. The patient is medically clear. Mental health is consulted. Mental health evaluates the patient and agrees that the patient is negative for findings concerning for risk of harm to himself or others. The patient was reevaluated and reported that he remained without any suicidal ideation homicidal ideation, or AVH. The patient is stable for discharge with outpatient follow-up. The patient is given follow-up and return instructions. The patient expressed understanding and agreed with the plan. The patient is discharged in stable condition. Critical care attestation.: If time is entered above; I have spent that time in minutes in the direct care of this critically ill patient, excluding procedure time. ED Disposition Clinical Impression: Mood disorder, Homelessness Disposition: DC-01 TO HOME OR SELFCARE Is pt being admited?: No Does the pt Need Aspirin: No Condition: Stable Instructions: Depression (ED), Mood Disorders (ED) Referrals: LAURA COLE MD [Primary Care Provider] - 3-5 Days [facility] [Outside] - 3-5 Days Time of Disposition: 07:13
== END 2017-12-16 07:47 | disposition home or self-care (01) ==
LOC: ED 02:20
DX: F39 Unspecified mood [affective] disorder (principal); Z59.0 Homelessness; F17.200 Nicotine dependence, unspecified, uncomplicated
CPT/HCPCS: 36415; 80048; 85025; 99284; G0480; 80320

== ENCOUNTER → 2017-12-18 23:00 | Emergency (ER) | payer MEDICARE | END | disposition left against medical advice (07) | LOC: ED 23:00 | DX: Z00.8 Encounter for other general examination (principal); Z53.21 Procedure and treatment not carried out due to patient leaving prior to being seen by health care provider ==

== ENCOUNTER 2017-12-20 02:15 | Emergency (ER) | payer MEDICARE ==
[2017-12-20 04:11] LABS: Basophils % (Auto) 0.7 % (0.0-1.8); Eosinophils # (Auto) 0.1 K/mm3 (0.0-0.4); Eosinophils % (Auto) 2.2 % (0.0-4.3); Hematocrit 44.9 % (35.5-45.6); Hemoglobin 15.1 gm/dl (11.8-15.2); Lymphocytes # (Auto) 2.6 K/mm3 (1.2-5.4); Lymphocytes % (Auto) 47.3 % (13.4-35.0); Mean Corpuscular HGB Conc 34 % (32-34); Mean Corpuscular Hemoglobin 30 pg (28-32); Mean Corpuscular Volume 88 fl (84-94); Monocytes # (Auto) 0.3 K/mm3 (0.0-0.8); Monocytes % (Auto) 5.7 % (0.0-7.3); Platelet Count 238 K/mm3 (140-440); Red Blood Count 5.08 M/mm3 (3.65-5.03); Red Cell Distribution Width 14.4 % (13.2-15.2)
[2017-12-20 04:26] LABS: BUN/Creatinine Ratio 16; Blood Urea Nitrogen 14 mg/dL (9-20); Calcium 8.8 mg/dL (8.4-10.2); Hemolysis Index 9
[2017-12-20 11:31] LABS: Amphetamine Screen,Urine PRESUMPTIVE NEGATIVE; Benzodiazepines Screen,Urine PRESUMPTIVE NEGATIVE; Bilirubin,Urine NEG (Negative); Blood,Urine NEG (Negative); Cannabinoid Screen,Urine PRESUMPTIVE NEGATIVE; Color,Urine Yellow (Yellow); Methadone Screen,Urine PRESUMPTIVE NEGATIVE; Mucus,Urine FEW /HPF; Opiate Screen,Urine PRESUMPTIVE NEGATIVE; Protein,Urine <15 mg/dL mg/dL (Negative); Sperm,Urine FEW /HPF (NP)
[2017-12-20 11:48] LABS: Cocaine Screen,Urine PRESUMPTIVE POSITIVE
--- NOTE | 2017-12-20 14:26 | Emergency Department Report ---
ED Psych HPI - General Chief Complaint: Psych Stated Complaint: MH Time Seen by Provider: 12/20/17 09:35 Source: patient Mode of arrival: Ambulatory Limitations: No Limitations - History of Present Illness Initial Comments: 37-year-old male with a past medical history. Depression and schizophrenia presents to the hospital complaining of psychosis. Patient has been here several times the last several days with complains of homelessness, needing place to sleep, psychosis, and suicidal ideation. Patient states has feelt suicidal at times for "a while". Denies active plan. Patient is homeless and states he needs a place to sleep. Patient is not taking his psychiatric medication. - Related Data Home Medications Medication Instructions Recorded Confirmed Last Taken Trazodone HCl [traZODone] 300 mg PO BID 04/19/14 12/16/17 07/27/14 Previous Rx's Medication Instructions Recorded Last Taken Type buPROPion [Wellbutrin] 100 mg PO BID #60 tablet 08/05/16 Unknown Rx Butenafine HCl [Lotrimin Ultra] 1 applicatio TP QDAY #1 cream..g. 08/25/17 Unknown Rx Menthol [Gold Bryan Medicated Foot] 1 applicatio TP QDAY #1 powder 08/25/17 Unknown Rx Neomycin/Bacitracin/Polymyxinb 1 applicatio TP BID #1 oint...g. 08/25/17 Unknown Rx [Neosporin Antibiotic Ointment] Allergies Allergy/AdvReac Type Severity Reaction Status Date / Time risperidone [From Risperdal] Allergy Shortness Verified 10/07/17 21:26 of Breath tomato Allergy Rash Verified 10/07/17 21:26 ED Review of Systems ROS: Stated complaint: MH Other details as noted in HPI Comment: All other systems reviewed and negative ED Past Medical Hx - Past Medical History Previous Medical History?: Yes Hx Renal Disease: Yes (Kidney Stones) Hx Sickle Cell Disease: Yes (sickle cell trait) Hx Kidney Stones: Yes Hx Psychiatric Treatment: Yes (Depression and Schizophrenia) - Surgical History Additional Surgical History: CIRCUMCISION - Social History Smoking Status: Never Smoker Substance Use Type: None - Medications Home Medications: Home Medications Medication Instructions Recorded Confirmed Last Taken Type Trazodone HCl [traZODone] 300 mg PO BID 04/19/14 12/16/17 07/27/14 History buPROPion [Wellbutrin] 100 mg PO BID #60 tablet 08/05/16 12/16/17 Unknown Rx Butenafine HCl [Lotrimin Ultra] 1 applicatio TP QDAY #1 cream..g. 08/25/1712/16 Unknown Rx Menthol [Gold Bryan Medicated Foot] 1 applicatio TP QDAY #1 powder 08/25/1712/16 Unknown Rx Neomycin/Bacitracin/Polymyxinb 1 applicatio TP BID #1 oint...g. 08/25/17 Unknown Rx [Neosporin Antibiotic Ointment] ED Physical Exam - General Limitations: No Limitations - Other Other exam information: General: No limitations, patient is alert in no acute distress Head exam: Atraumatic, normocephalic Eyes exam: Normal appearance, pupils equal reactive to light, extraocular movements intact ENT: Moist mucous membrane, normal oropharynx Neck exam: Normal inspection, full range of motion, no meningismus nontender Respiratory exam: Clear to auscultation bilateral, no wheezes, rales, crackles Cardiovascular: Normal rate and rhythm, normal heart sounds Abdomen: Soft, nondistended, and nontender, with normal bowel sounds, no rebound, or guarding Extremity: Full range of motion normal inspection no deformity Back: Normal Inspection, full range of motion, no tenderness Neurologic: Alert, oriented x3, cranial nerves intact, no motor or sensory deficit Psychiatric: normal affect, normal mood Skin: Warm, dry, intact ED Course Vital Signs 12/20/17 12/20/17 03:31 07:37 Temperature 98.8 F 97.9 F Pulse Rate 92 H 63 Respiratory 18 18 Rate Blood Pressure 123/69 120/50 O2 Sat by Pulse 100 Oximetry - Reevaluation(s) Reevaluation #1: 12/20/17 14:31 patient remains calm and cooperative in the ED ED Medical Decision Making - Lab Data Result diagrams: 12/20/17 03:45 12/20/17 03:45 Lab Results 12/20/17 12/20/17 12/20/17 Range/Units 03:45 03:45 03:45 WBC (4.5-11.0) K/mm3 RBC (3.65-5.03) M/mm3 Hgb (11.8-15.2) gm/dl Hct (35.5-45.6) % MCV (84-94) fl MCH (28-32) pg MCHC (32-34) % RDW (13.2-15.2) % Plt Count (140-440) K/mm3 Lymph % (Auto) (13.4-35.0) % [place] % (Auto) (0.0-7.3) % Eos % (Auto) (0.0-4.3) % Baso % (Auto) (0.0-1.8) % Lymph # (1.2-5.4) K/mm3 [place] # (0.0-0.8) K/mm3 Eos # (0.0-0.4) K/mm3 Baso # (0.0-0.1) K/mm3 Seg Neutrophils % (40.0-70.0) % Seg Neutrophils # (1.8-7.7) K/mm3 Sodium 138 (137-145) mmol/L Potassium 4.4 (3.6-5.0) mmol/L Chloride 99.1 (98-107) mmol/L Carbon Dioxide 27 (22-30) mmol/L Anion Gap 16 mmol/L BUN 14 (9-20) mg/dL Creatinine 0.9 (0.8-1.5) mg/dL Estimated GFR > 60 ml/min BUN/Creatinine Ratio 16 % Glucose 91 (75-100) mg/dL Calcium 8.8 (8.4-10.2) mg/dL Urine Color (Yellow) Urine Turbidity (Clear) Urine pH (5.0-7.0) Ur Specific Deale (1.003-1.030) Urine Protein (Negative) mg/dL Urine Glucose (UA) (Negative) mg/dL Urine Ketones (Negative) mg/dL Urine Blood (Negative) Urine Nitrite (Negative) Urine Bilirubin (Negative) Urine Urobilinogen (<2.0) mg/dL Ur Leukocyte Esterase (Negative) Urine WBC (Auto) (0.0-6.0) /HPF Urine RBC (Auto) (0.0-6.0) /HPF U Epithel Cells (Auto) (0-13.0) /HPF Urine Mucus /HPF Urine Sperm ([employer]) /HPF Salicylates < 0.3 L (2.8-20.0) mg/dL Urine Opiates Screen Urine Methadone Screen Acetaminophen < 5.0 L (10.0-30.0) ug/mL Ur Barbiturates Screen Ur Phencyclidine Scrn Ur Amphetamines Screen U Benzodiazepines Scrn Urine Cocaine Screen U Marijuana (THC) Screen Drugs of Abuse Note Plasma/Serum Alcohol (0-0.07) % 12/20/17 12/20/17 12/20/17 Range/Units 03:45 03:45 09:55 WBC 5.6 (4.5-11.0) K/mm3 RBC 5.08 H (3.65-5.03) M/mm3 Hgb 15.1 (11.8-15.2) gm/dl Hct 44.9 (35.5-45.6) % MCV 88 (84-94) fl MCH 30 (28-32) pg MCHC 34 (32-34) % RDW 14.4 (13.2-15.2) % Plt Count 238 (140-440) K/mm3 Lymph % (Auto) 47.3 H (13.4-35.0) % [place] % (Auto) 5.7 (0.0-7.3) % Eos % (Auto) 2.2 (0.0-4.3) % Baso % (Auto) 0.7 (0.0-1.8) % Lymph # 2.6 (1.2-5.4) K/mm3 [place] # 0.3 (0.0-0.8) K/mm3 Eos # 0.1 (0.0-0.4) K/mm3 Baso # 0.0 (0.0-0.1) K/mm3 Seg Neutrophils % 44.1 (40.0-70.0) % Seg Neutrophils # 2.5 (1.8-7.7) K/mm3 Sodium (137-145) mmol/L Potassium (3.6-5.0) mmol/L Chloride (98-107) mmol/L Carbon Dioxide (22-30) mmol/L Anion Gap mmol/L BUN (9-20) mg/dL Creatinine (0.8-1.5) mg/dL Estimated GFR ml/min BUN/Creatinine Ratio % Glucose (75-100) mg/dL Calcium (8.4-10.2) mg/dL Urine Color Yellow (Yellow) Urine Turbidity Clear (Clear) Urine pH 5.0 (5.0-7.0) Ur Specific Deale 1.021 (1.003-1.030) Urine Protein <15 mg/dl (Negative) mg/dL Urine Glucose (UA) Neg (Negative) mg/dL Urine Ketones Neg (Negative) mg/dL Urine Blood Neg (Negative) Urine Nitrite Neg (Negative) Urine Bilirubin Neg (Negative) Urine Urobilinogen 2.0 (<2.0) mg/dL Ur Leukocyte Esterase Tr (Negative) Urine WBC (Auto) 4.0 (0.0-6.0) /HPF Urine RBC (Auto) 3.0 (0.0-6.0) /HPF U Epithel Cells (Auto) 1.0 (0-13.0) /HPF Urine Mucus Few /HPF Urine Sperm Few ([employer]) /HPF Salicylates (2.8-20.0) mg/dL Urine Opiates Screen Urine Methadone Screen Acetaminophen (10.0-30.0) ug/mL Ur Barbiturates Screen Ur Phencyclidine Scrn Ur Amphetamines Screen U Benzodiazepines Scrn Urine Cocaine Screen U Marijuana (THC) Screen Drugs of Abuse Note Plasma/Serum Alcohol < 0.01 (0-0.07) % 12/20/17 Range/Units 09:55 WBC (4.5-11.0) K/mm3 RBC (3.65-5.03) M/mm3 Hgb (11.8-15.2) gm/dl Hct (35.5-45.6) % MCV (84-94) fl MCH (28-32) pg MCHC (32-34) % RDW (13.2-15.2) % Plt Count (140-440) K/mm3 Lymph % (Auto) (13.4-35.0) % [place] % (Auto) (0.0-7.3) % Eos % (Auto) (0.0-4.3) % Baso % (Auto) (0.0-1.8) % Lymph # (1.2-5.4) K/mm3 [place] # (0.0-0.8) K/mm3 Eos # (0.0-0.4) K/mm3 Baso # (0.0-0.1) K/mm3 Seg Neutrophils % (40.0-70.0) % Seg Neutrophils # (1.8-7.7) K/mm3 Sodium (137-145) mmol/L Potassium (3.6-5.0) mmol/L Chloride (98-107) mmol/L Carbon Dioxide (22-30) mmol/L Anion Gap mmol/L BUN (9-20) mg/dL Creatinine (0.8-1.5) mg/dL Estimated GFR ml/min BUN/Creatinine Ratio % Glucose (75-100) mg/dL Calcium (8.4-10.2) mg/dL Urine Color (Yellow) Urine Turbidity (Clear) Urine pH (5.0-7.0) Ur Specific [place] (1.003-1.030) Urine Protein (Negative) mg/dL Urine Glucose (UA) (Negative) mg/dL Urine Ketones (Negative) mg/dL Urine Blood (Negative) Urine Nitrite (Negative) Urine Bilirubin (Negative) Urine Urobilinogen (<2.0) mg/dL Ur Leukocyte Esterase (Negative) Urine WBC (Auto) (0.0-6.0) /HPF Urine RBC (Auto) (0.0-6.0) /HPF U Epithel Cells (Auto) (0-13.0) /HPF Urine Mucus /HPF Urine Sperm ([employer]) /HPF Salicylates (2.8-20.0) mg/dL Urine Opiates Screen Presumptive negative Urine Methadone Screen Presumptive negative Acetaminophen (10.0-30.0) ug/mL Ur Barbiturates Screen Presumptive negative Ur Phencyclidine Scrn Presumptive negative Ur Amphetamines Screen Presumptive negative U Benzodiazepines Scrn Presumptive negative Urine Cocaine Screen Presumptive positive U Marijuana (THC) Screen Presumptive negative Drugs of Abuse Note Disclamer Plasma/Serum Alcohol (0-0.07) % - Medical Decision Making Patient seen and evaluated by mental health. Patient not acutely suicidal but homeless in needed a place to sleep for the night. Will be discharged - Differential Diagnosis suicidal, homeless, psychosis, schizophrenia Critical Care Time: No Critical care attestation.: If time is entered above; I have spent that time in minutes in the direct care of this critically ill patient, excluding procedure time. ED Disposition Clinical Impression: Homelessness, Schizophrenia Disposition: DC-01 TO HOME OR SELFCARE Is pt being admited?: No Does the pt Need Aspirin: No Condition: Stable Instructions: Schizophrenia (ED) Additional Instructions: Follow up with [facility] for further help with your schizophrenia treatment Referrals: [facility] [Outside] - 3-5 Days Time of Disposition: 14:25
[2017-12-20 17:29] VITALS: BP 99/49
== END 2017-12-20 14:45 | disposition home or self-care (01) ==
LOC: ED 02:15
DX: F20.9 Schizophrenia, unspecified (principal); Z59.0 Homelessness
CPT/HCPCS: 36415; 80048; 80307; 81001; 85025; 99283; G0480; 80320

== ENCOUNTER 2017-12-20 23:24 | Emergency (ER) | payer MEDICARE ==
--- NOTE | 2017-12-21 02:45 | Emergency Department Report ---
ED Psych HPI - General Chief Complaint: Psych Stated Complaint: MH Time Seen by Provider: 12/21/17 02:35 Source: patient Mode of arrival: Ambulatory - History of Present Illness Initial Comments: Patient is admitted to years old male history of schizophrenia, noncompliant with his medication, patient is homeless. He was just discharged from the hospital yesterday. Patient stated that he is homeless and he wanted to go to a nursing home. He denied any suicidal or homicidal ideation. He stated that he voices. But no visual hallucination. - Related Data Home Medications Medication Instructions Recorded Confirmed Last Taken Trazodone HCl [traZODone] 300 mg PO BID 04/19/14 12/16/17 07/27/14 Previous Rx's Medication Instructions Recorded Last Taken Type buPROPion [Wellbutrin] 100 mg PO BID #60 tablet 08/05/16 Unknown Rx Butenafine HCl [Lotrimin Ultra] 1 applicatio TP QDAY #1 cream..g. 08/25/17 Unknown Rx Menthol [Gold Bryan Medicated Foot] 1 applicatio TP QDAY #1 powder 08/25/17 Unknown Rx Neomycin/Bacitracin/Polymyxinb 1 applicatio TP BID #1 oint...g. 08/25/17 Unknown Rx [Neosporin Antibiotic Ointment] Allergies Allergy/AdvReac Type Severity Reaction Status Date / Time risperidone [From Risperdal] Allergy Shortness Verified 10/07/17 21:26 of Breath tomato Allergy Rash Verified 10/07/17 21:26 ED Review of Systems ROS: Stated complaint: MH Other details as noted in HPI Comment: All other systems reviewed and negative Constitutional: denies: chills, fever Respiratory: denies: cough, shortness of breath, SOB with exertion Cardiovascular: denies: chest pain, palpitations, dyspnea on exertion Gastrointestinal: denies: abdominal pain, nausea, vomiting, diarrhea, constipation, hematemesis Neurological: denies: headache, weakness, numbness, paresthesias ED Past Medical Hx - Past Medical History Previous Medical History?: Yes Hx Renal Disease: Yes (Kidney Stones) Hx Sickle Cell Disease: Yes (sickle cell trait) Hx Kidney Stones: Yes Hx Psychiatric Treatment: Yes (Depression and Schizophrenia) - Surgical History Past Surgical History?: Yes Additional Surgical History: CIRCUMCISION - Social History Smoking Status: Current Every Day Smoker Substance Use Type: None - Medications Home Medications: Home Medications Medication Instructions Recorded Confirmed Last Taken Type Trazodone HCl [traZODone] 300 mg PO BID 04/19/14 12/16/17 07/27/14 History buPROPion [Wellbutrin] 100 mg PO BID #60 tablet 08/05/16 12/16/17 Unknown Rx Butenafine HCl [Lotrimin Ultra] 1 applicatio TP QDAY #1 cream..g. 08/25/1712/16 Unknown Rx Menthol [Gold Bryan Medicated Foot] 1 applicatio TP QDAY #1 powder 08/25/1712/16 Unknown Rx Neomycin/Bacitracin/Polymyxinb 1 applicatio TP BID #1 oint...g. 08/25/17 Unknown Rx [Neosporin Antibiotic Ointment] ED Physical Exam - General Limitations: No Limitations General appearance: alert, in no apparent distress - Head Head exam: Present: atraumatic, normocephalic, normal inspection - Eye Eye exam: Present: normal appearance, PERRL - Neck Neck exam: Present: normal inspection, full ROM. Absent: tenderness, meningismus, lymphadenopathy - Respiratory Respiratory exam: Present: normal lung sounds bilaterally. Absent: respiratory distress, wheezes, rales, rhonchi, stridor, accessory muscle use, decreased breath sounds, prolonged expiratory - Cardiovascular Cardiovascular Exam: Present: regular rate, normal rhythm, normal heart sounds - GI/Abdominal GI/Abdominal exam: Present: soft, normal bowel sounds. Absent: distended, tenderness, guarding, rebound, rigid, organomegaly, mass, bruit, pulsatile mass - Extremities Exam Extremities exam: Present: normal inspection, full ROM, normal capillary refill - Back Exam Back exam: Present: normal inspection, full ROM. Absent: CVA tenderness (L) - Neurological Exam Neurological exam: Present: alert, oriented X3, CN II-XII intact, normal gait - Psychiatric Psychiatric exam: Present: normal mood. Absent: depressed, agitated, anxious, flat affect, manic, homicidal ideation, suicidal ideation - Skin Skin exam: Present: warm, normal color ED Course Vital Signs 12/20/17 12/20/17 12/21/17 23:24 23:38 02:04 Temperature 98.1 F 98.1 F Pulse Rate 86 86 Respiratory 16 17 16 Rate Blood Pressure 185/151 112/75 Blood Pressure [Right] O2 Sat by Pulse 97 99 99 Oximetry 12/21/17 02:05 Temperature 98.3 F Pulse Rate 89 Respiratory 16 Rate Blood Pressure Blood Pressure 111/75 [Right] O2 Sat by Pulse 99 Oximetry Critical care attestation.: If time is entered above; I have spent that time in minutes in the direct care of this critically ill patient, excluding procedure time. ED Disposition Clinical Impression: Homelessness, Schizophrenia Disposition: DC-01 TO HOME OR SELFCARE Is pt being admited?: No Condition: Stable Instructions: Schizophrenia (ED) Referrals: LAURA COLE MD [Primary Care Provider] - 3-5 Days
[2017-12-21 12:43] VITALS: BP 100/55
== END 2017-12-21 15:02 | disposition home or self-care (01) ==
LOC: ED 23:24
DX: F20.9 Schizophrenia, unspecified (principal); F32.9 Major depressive disorder, single episode, unspecified; F17.200 Nicotine dependence, unspecified, uncomplicated; Z91.018 Allergy to other foods; Z87.442 Personal history of urinary calculi
CPT/HCPCS: 99282

== ENCOUNTER 2017-12-22 02:31 | Emergency (ER) | payer MEDICARE | END 2017-12-22 02:39 | disposition left against medical advice (07) | LOC: ED 02:31 | DX: Z00.8 Encounter for other general examination (principal); Z53.21 Procedure and treatment not carried out due to patient leaving prior to being seen by health care provider ==

== ENCOUNTER 2017-12-23 00:28 | Emergency (ER) | payer MEDICARE ==
[2017-12-23 10:40] VITALS: BP 106/63
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
[2017-12-23 11:14] LABS: Basophils % (Auto) 1.1 % (0.0-1.8); Eosinophils # (Auto) 0.2 K/mm3 (0.0-0.4); Eosinophils % (Auto) 3.9 % (0.0-4.3); Hematocrit 48.1 % (35.5-45.6); Hemoglobin 16.3 gm/dl (11.8-15.2); Lymphocytes # (Auto) 1.9 K/mm3 (1.2-5.4); Lymphocytes % (Auto) 43.4 % (13.4-35.0); Mean Corpuscular HGB Conc 34 % (32-34); Mean Corpuscular Hemoglobin 30 pg (28-32); Mean Corpuscular Volume 89 fl (84-94); Monocytes # (Auto) 0.3 K/mm3 (0.0-0.8); Monocytes % (Auto) 6.9 % (0.0-7.3); Platelet Count 225 K/mm3 (140-440); Red Blood Count 5.44 M/mm3 (3.65-5.03); Red Cell Distribution Width 14.2 % (13.2-15.2)
[2017-12-23 11:22] LABS: BUN/Creatinine Ratio 18; Blood Urea Nitrogen 14 mg/dL (9-20); Calcium 8.9 mg/dL (8.4-10.2); Hemolysis Index 8
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
[2017-12-23 14:02] LABS: Bilirubin,Urine NEG (Negative); Blood,Urine NEG (Negative); Color,Urine Yellow (Yellow); Mucus,Urine FEW /HPF; Protein,Urine <15 mg/dL mg/dL (Negative); Urobilinogen,Urine < 2.0 mg/dL (<2.0)
[2017-12-23 14:09] LABS: Amphetamine Screen,Urine PRESUMPTIVE NEGATIVE; Benzodiazepines Screen,Urine PRESUMPTIVE NEGATIVE; Cannabinoid Screen,Urine PRESUMPTIVE NEGATIVE; Methadone Screen,Urine PRESUMPTIVE NEGATIVE; Opiate Screen,Urine PRESUMPTIVE NEGATIVE
[2017-12-23 14:21] LABS: Cocaine Screen,Urine PRESUMPTIVE POSITIVE
== END 2017-12-23 16:02 ==
LOC: ED 00:28
DX: S09.8XXA Other specified injuries of head, initial encounter (principal); F20.9 Schizophrenia, unspecified; R45.851 Suicidal ideations; F32.9 Major depressive disorder, single episode, unspecified; Z87.442 Personal history of urinary calculi; F17.200 Nicotine dependence, unspecified, uncomplicated; Y04.2XXA Assault by strike against or bumped into by another person, initial encounter; Y93.89 Activity, other specified; Y92.89 Other specified places as the place of occurrence of the external cause; Y99.8 Other external cause status
CPT/HCPCS: 36415; 70450; 80048; 80307; 81001; 85025; 99285; G0480; 80320

== ENCOUNTER 2018-01-07 04:05 | Emergency (ER) | payer MEDICARE ==
[2018-01-07 05:20] VITALS: BP 119/65
[2018-01-07 06:24] LABS: Basophils # (Auto) 0.1 K/mm3 (0.0-0.1); Basophils % (Auto) 1.2 % (0.0-1.8); Eosinophils # (Auto) 0.2 K/mm3 (0.0-0.4); Eosinophils % (Auto) 2.5 % (0.0-4.3); Hematocrit 42.7 % (35.5-45.6); Hemoglobin 14.7 gm/dl (11.8-15.2); Lymphocytes # (Auto) 2.6 K/mm3 (1.2-5.4); Lymphocytes % (Auto) 40.2 % (13.4-35.0); Mean Corpuscular HGB Conc 35 % (32-34); Mean Corpuscular Hemoglobin 30 pg (28-32); Mean Corpuscular Volume 88 fl (84-94); Monocytes # (Auto) 0.6 K/mm3 (0.0-0.8); Monocytes % (Auto) 9.6 % (0.0-7.3); Platelet Count 217 K/mm3 (140-440); Red Blood Count 4.87 M/mm3 (3.65-5.03); Red Cell Distribution Width 14.7 % (13.2-15.2)
[2018-01-07 06:59] LABS: BUN/Creatinine Ratio 27; Blood Urea Nitrogen 19 mg/dL (9-20); Calcium 8.5 mg/dL (8.4-10.2); Hemolysis Index 3
== END 2018-01-07 08:00 | disposition left against medical advice (07) ==
LOC: ED 04:05
DX: F32.9 Major depressive disorder, single episode, unspecified (principal); F20.9 Schizophrenia, unspecified; D57.3 Sickle-cell trait; Z79.899 Other long term (current) drug therapy; Z53.21 Procedure and treatment not carried out due to patient leaving prior to being seen by health care provider
CPT/HCPCS: 36415; 80048; 85025; G0480; 80320

== ENCOUNTER 2018-01-08 23:38 | Emergency (ER) | payer MEDICARE ==
[2018-01-08 23:47] VITALS: BP 160/76
[2018-01-09 01:14] LABS: Basophils # (Auto) 0.1 K/mm3 (0.0-0.1); Eosinophils # (Auto) 0.3 K/mm3 (0.0-0.4); Hematocrit 42.3 % (35.5-45.6); Hemoglobin 13.9 gm/dl (11.8-15.2); Lymphocytes # (Auto) 2.6 K/mm3 (1.2-5.4); Lymphocytes % (Auto) 42.7 % (13.4-35.0); Mean Corpuscular HGB Conc 33 % (32-34); Mean Corpuscular Hemoglobin 29 pg (28-32); Mean Corpuscular Volume 89 fl (84-94); Monocytes # (Auto) 0.4 K/mm3 (0.0-0.8); Monocytes % (Auto) 7.3 % (0.0-7.3); Platelet Count 235 K/mm3 (140-440); Red Blood Count 4.73 M/mm3 (3.65-5.03); Red Cell Distribution Width 14.3 % (13.2-15.2)
[2018-01-09 01:25] LABS: BUN/Creatinine Ratio 23; Blood Urea Nitrogen 23 mg/dL (9-20); Calcium 8.8 mg/dL (8.4-10.2); Hemolysis Index 4
[2018-01-09 03:03] LABS: Amphetamine Screen,Urine PRESUMPTIVE NEGATIVE; Benzodiazepines Screen,Urine PRESUMPTIVE NEGATIVE; Cannabinoid Screen,Urine PRESUMPTIVE NEGATIVE; Methadone Screen,Urine PRESUMPTIVE NEGATIVE; Opiate Screen,Urine PRESUMPTIVE NEGATIVE
[2018-01-09 03:10] LABS: Bilirubin,Urine NEG (Negative); Blood,Urine SM (Negative); Color,Urine Yellow (Yellow); Mucus,Urine FEW /HPF; Protein,Urine <15 mg/dL mg/dL (Negative); Urobilinogen,Urine < 2.0 mg/dL (<2.0)
[2018-01-09 03:21] LABS: Cocaine Screen,Urine PRESUMPTIVE POSITIVE
== END 2018-01-09 02:30 | disposition left against medical advice (07) ==
LOC: ED 23:38
DX: F32.9 Major depressive disorder, single episode, unspecified (principal); F20.9 Schizophrenia, unspecified; Z53.21 Procedure and treatment not carried out due to patient leaving prior to being seen by health care provider; Z79.899 Other long term (current) drug therapy
CPT/HCPCS: 36415; 80048; 80307; 81001; 85025; G0480; 80320

== ENCOUNTER 2019-08-02 00:59 | Emergency (ER) | payer SELFPAY ==
[2019-08-02 01:10] VITALS: BP 127/74
[2019-08-02 01:50] LABS: Basophils # (Auto) 0.1 K/mm3 (0.0-0.1); Eosinophils # (Auto) 0.2 K/mm3 (0.0-0.4); Eosinophils % (Auto) 2.5 % (0.0-4.3); Hematocrit 42.2 % (35.5-45.6); Hemoglobin 14.4 gm/dl (11.8-15.2); Lymphocytes % (Auto) 20.6 % (13.4-35.0); Mean Corpuscular HGB Conc 34 % (32-34); Mean Corpuscular Volume 90 fl (84-94); Monocytes # (Auto) 0.7 K/mm3 (0.0-0.8); Monocytes % (Auto) 7.2 % (0.0-7.3); Platelet Count 241 K/mm3 (140-440); Red Blood Count 4.68 M/mm3 (3.65-5.03); Red Cell Distribution Width 13.4 % (13.2-15.2)
[2019-08-02 02:06] LABS: BUN/Creatinine Ratio 10; Blood Urea Nitrogen 9 mg/dL (9-20); Calcium 9.4 mg/dL (8.4-10.2); Hemolysis Index 16
[2019-08-02 02:45] LABS: Bilirubin,Urine NEG (Negative); Blood,Urine SM (Negative); Color,Urine Yellow (Yellow); Protein,Urine <15 mg/dL mg/dL (Negative); Urobilinogen,Urine < 2.0 mg/dL (<2.0); WBC,Urine < 1.0 /HPF (0.0-6.0)
[2019-08-02 02:52] LABS: Amphetamine Screen,Urine PRESUMPTIVE NEGATIVE; Benzodiazepines Screen,Urine PRESUMPTIVE NEGATIVE; Cannabinoid Screen,Urine PRESUMPTIVE NEGATIVE; Cocaine Screen,Urine PRESUMPTIVE NEGATIVE; Methadone Screen,Urine PRESUMPTIVE NEGATIVE; Opiate Screen,Urine PRESUMPTIVE NEGATIVE
--- NOTE | 2019-08-02 04:00 | Emergency Department Report ---
ED Psych HPI - General Chief Complaint: Psych Stated Complaint: SUICIDAL Time Seen by Provider: 08/02/19 03:55 Source: patient Mode of arrival: Ambulatory Limitations: No Limitations - History of Present Illness Initial Comments: CC: "I am here for suicidal ideation." HPI: Mr. Perdomo is a very pleasant 38-year-old male with history of schizophrenia, cutting behavior kidney stones who presents with "suicidal ideation". He was recently released from halfway after being incarcerated for 2 years on July 31. He became suicidal after his brother hassled him about money issues. He denies any physical complaints. He planned to use a razor to cut his wrist. He showed me scars from previous cutting episodes. He denies any physical complaints. He desires a shower at this time. MD Complaint: suicidal ideation -: Gradual, days(s) (1) Associated Psychiatric Symptoms: depression, suicidal ideation History of same: Yes Quality: constant Improves With: none Worsens With: none Context: significant life stressor Associated Symptoms: denies other symptoms Treatments Prior to Arrival: none If Self Harm: admits thoughts of, has plan - Related Data Home Medications Medication Instructions Recorded Confirmed Last Taken Haloperidol [Haldol] 5 mg PO BID 08/02/19 08/02/19 Unknown Vitamin E 100 unit PO QDAY 08/02/19 08/02/19 Unknown diphenhydrAMINE [Benadryl CAP] 50 mg PO QDAY 08/02/19 08/02/19 Unknown Allergies Allergy/AdvReac Type Severity Reaction Status Date / Time risperidone [From Risperdal] Allergy Shortness Verified 10/07/17 21:26 of Breath tomato Allergy Rash Verified 10/07/17 21:26 ED Review of Systems ROS: Stated complaint: SUICIDAL Other details as noted in HPI Comment: All other systems reviewed and negative Constitutional: denies: fever, malaise Respiratory: denies: cough Cardiovascular: denies: chest pain Gastrointestinal: denies: abdominal pain, nausea, vomiting Psychiatric: depression, suicidal thoughts ED Past Medical Hx - Past Medical History Previous Medical History?: Yes Hx Renal Disease: Yes (Kidney Stones) Hx Sickle Cell Disease: Yes (sickle cell trait) Hx Kidney Stones: Yes Hx Psychiatric Treatment: Yes (Depression and Schizophrenia) - Surgical History Past Surgical History?: Yes Additional Surgical History: CIRCUMCISION - Social History Smoking Status: Current Every Day Smoker Substance Use Type: Alcohol - Medications Home Medications: Home Medications Medication Instructions Recorded Confirmed Last Taken Type Haloperidol [Haldol] 5 mg PO BID 08/02/19 08/02/19 Unknown History Vitamin E 100 unit PO QDAY 08/02/19 08/02/19 Unknown History diphenhydrAMINE [Benadryl CAP] 50 mg PO QDAY 08/02/19 08/02/19 Unknown History ED Physical Exam - General Limitations: No Limitations General appearance: alert, in no apparent distress - Head Head exam: Present: atraumatic, normocephalic - Eye Eye exam: Present: normal appearance. Absent: scleral icterus, conjunctival injection - ENT ENT exam: Present: mucous membranes moist - Neck Neck exam: Present: normal inspection, full ROM - Respiratory Respiratory exam: Present: normal lung sounds bilaterally. Absent: respiratory distress, wheezes, rales - Cardiovascular Cardiovascular Exam: Present: regular rate, normal rhythm, normal heart sounds. Absent: systolic murmur, diastolic murmur, rubs, gallop - GI/Abdominal GI/Abdominal exam: Present: soft, normal bowel sounds - Rectal Rectal exam: Present: deferred - Extremities Exam Extremities exam: Present: normal inspection - Back Exam Back exam: Present: normal inspection - Neurological Exam Neurological exam: Present: alert, oriented X3 - Psychiatric Psychiatric exam: Present: normal affect, depressed, suicidal ideation - Skin Skin exam: Present: warm, dry, intact, normal color. Absent: rash ED Course Vital Signs 08/02/19 08/02/19 08/02/19 01:05 06:34 08:02 Temperature 98.2 F Pulse Rate 122 H 95 H Respiratory 20 18 16 Rate Blood Pressure 127/74 O2 Sat by Pulse 97 98 100 Oximetry ED Medical Decision Making - Lab Data Result diagrams: 08/02/19 01:27 08/02/19 01:27 Laboratory Results - last 24 hr 08/02/19 08/02/19 08/02/19 01:27 01:27 01:27 WBC RBC Hgb Hct MCV MCH MCHC RDW Plt Count Lymph % (Auto) [place] % (Auto) Eos % (Auto) Baso % (Auto) Lymph # [place] # Eos # Baso # Seg Neutrophils % Seg Neutrophils # Sodium 142 Potassium 3.6 Chloride 99.2 Carbon Dioxide 29 Anion Gap 17 BUN 9 Creatinine 0.9 Estimated GFR > 60 BUN/Creatinine Ratio 10 Glucose 96 Calcium 9.4 Urine Color Urine Turbidity Urine pH Ur Specific [place] Urine Protein Urine Glucose (UA) Urine Ketones Urine Blood Urine Nitrite Urine Bilirubin Urine Urobilinogen Ur Leukocyte Esterase Urine WBC (Auto) Urine RBC (Auto) U Epithel Cells (Auto) Salicylates < 0.3 L Urine Opiates Screen Urine Methadone Screen Acetaminophen < 5.0 L Ur Barbiturates Screen Ur Phencyclidine Scrn Ur Amphetamines Screen U Benzodiazepines Scrn Urine Cocaine Screen U Marijuana (THC) Screen Drugs of Abuse Note Plasma/Serum Alcohol 08/02/19 08/02/19 08/02/19 01:27 01:27 02:21 WBC 9.9 RBC 4.68 Hgb 14.4 Hct 42.2 MCV 90 MCH 31 MCHC 34 RDW 13.4 Plt Count 241 Lymph % (Auto) 20.6 [place] % (Auto) 7.2 Eos % (Auto) 2.5 Baso % (Auto) 1.0 Lymph # 2.0 [place] # 0.7 Eos # 0.2 Baso # 0.1 Seg Neutrophils % 68.7 Seg Neutrophils # 6.8 Sodium Potassium Chloride Carbon Dioxide Anion Gap BUN Creatinine Estimated GFR BUN/Creatinine Ratio Glucose Calcium Urine Color Yellow Urine Turbidity Clear Urine pH 8.0 H Ur Specific [place] 1.011 Urine Protein <15 mg/dl Urine Glucose (UA) Neg Urine Ketones Neg Urine Blood Sm Urine Nitrite Neg Urine Bilirubin Neg Urine Urobilinogen < 2.0 Ur Leukocyte Esterase Neg Urine WBC (Auto) < 1.0 Urine RBC (Auto) 2.0 U Epithel Cells (Auto) < 1.0 Salicylates Urine Opiates Screen Urine Methadone Screen Acetaminophen Ur Barbiturates Screen Ur Phencyclidine Scrn Ur Amphetamines Screen U Benzodiazepines Scrn Urine Cocaine Screen U Marijuana (THC) Screen Drugs of Abuse Note Plasma/Serum Alcohol < 0.01 08/02/19 02:21 WBC RBC Hgb Hct MCV MCH MCHC RDW Plt Count Lymph % (Auto) [place] % (Auto) Eos % (Auto) Baso % (Auto) Lymph # [place] # Eos # Baso # Seg Neutrophils % Seg Neutrophils # Sodium Potassium Chloride Carbon Dioxide Anion Gap BUN Creatinine Estimated GFR BUN/Creatinine Ratio Glucose Calcium Urine Color Urine Turbidity Urine pH Ur Specific [place] Urine Protein Urine Glucose (UA) Urine Ketones Urine Blood Urine Nitrite Urine Bilirubin Urine Urobilinogen Ur Leukocyte Esterase Urine WBC (Auto) Urine RBC (Auto) U Epithel Cells (Auto) Salicylates Urine Opiates Screen Presumptive negative Urine Methadone Screen Presumptive negative Acetaminophen Ur Barbiturates Screen Presumptive negative Ur Phencyclidine Scrn Presumptive negative Ur Amphetamines Screen Presumptive negative U Benzodiazepines Scrn Presumptive negative Urine Cocaine Screen Presumptive negative U Marijuana (THC) Screen Presumptive negative Drugs of Abuse Note Disclamer Plasma/Serum Alcohol - Medical Decision Making Mr. Perdomo presents to ED with plan to cut his wrist. He has significant life stressor adjusting to life after incarceration. Placed on involuntary hold with [address] I have reviewed labs obtained: CBC chemistry urinalysis urine tox screen serum tox screen all within normal limits. He is medically clear for psychiatric care. Transferred to [facility] Critical care attestation.: If time is entered above; I have spent that time in minutes in the direct care of this critically ill patient, excluding procedure time. ED Disposition Clinical Impression: Schizophrenia, Suicidal ideation Disposition: DC/TX-65 PSY HOSP/PSY UNIT Is pt being admited?: No Does the pt Need Aspirin: No Condition: Stable
== END 2019-08-02 09:33 ==
LOC: ED 00:59
DX: F20.89 Other schizophrenia (principal); F17.200 Nicotine dependence, unspecified, uncomplicated; D57.3 Sickle-cell trait; Z91.018 Allergy to other foods; Z88.6 Allergy status to analgesic agent; Z79.899 Other long term (current) drug therapy
CPT/HCPCS: 36415; 80048; 80307; 80320; 81001; 85025; G0480

== ENCOUNTER 2019-09-16 00:34 | Emergency (ER) | payer MEDICARE ==
[2019-09-16 02:14] LABS: Basophils % (Auto) 0.6 % (0.0-1.8); Eosinophils # (Auto) 0.2 K/mm3 (0.0-0.4); Eosinophils % (Auto) 2.4 % (0.0-4.3); Hematocrit 41.7 % (35.5-45.6); Hemoglobin 14.1 gm/dl (11.8-15.2); Lymphocytes # (Auto) 2.6 K/mm3 (1.2-5.4); Lymphocytes % (Auto) 41.1 % (13.4-35.0); Mean Corpuscular HGB Conc 34 % (32-34); Mean Corpuscular Volume 90 fl (84-94); Monocytes # (Auto) 0.5 K/mm3 (0.0-0.8); Monocytes % (Auto) 7.3 % (0.0-7.3); Platelet Count 224 K/mm3 (140-440); Red Blood Count 4.66 M/mm3 (3.65-5.03); Red Cell Distribution Width 13.6 % (13.2-15.2)
[2019-09-16 02:33] LABS: BUN/Creatinine Ratio 10; Blood Urea Nitrogen 9 mg/dL (9-20); Calcium 9.1 mg/dL (8.4-10.2); Hemolysis Index 1
--- NOTE | 2019-09-16 02:52 | Emergency Department Report ---
ED Psych HPI - General Chief Complaint: Psych Stated Complaint: MH EVAL Time Seen by Provider: 09/16/19 02:47 Source: patient Mode of arrival: Ambulatory - History of Present Illness Initial Comments: Patient is a 38-year-old [place] male has a past history of schizophrenia who is presenting stating it is been feeling suicidal. Patient states that if he had a gun he would blow his brains out. Patient does not have. Patient states he is no longer on medications at this time for schizophrenia. He is having auditory hallucinations telling him he should kill himself. Denies homicidal ideations. Associated Psychiatric Symptoms: racing thoughts Improves With: none Worsens With: none - Related Data Home Medications Medication Instructions Recorded Confirmed Last Taken Vitamin E 100 unit PO QDAY 08/02/19 08/02/19 Unknown diphenhydrAMINE [Benadryl CAP] 50 mg PO QDAY 08/02/19 08/02/19 Unknown haloperidoL [Haldol] 5 mg PO BID 08/02/19 08/02/19 Unknown Allergies Allergy/AdvReac Type Severity Reaction Status Date / Time risperidone [From Risperdal] Allergy Shortness Verified 10/07/17 21:26 of Breath tomato Allergy Rash Verified 10/07/17 21:26 ED Review of Systems ROS: Stated complaint: MH EVAL Other details as noted in HPI Comment: All other systems reviewed and negative ED Past Medical Hx - Past Medical History Previous Medical History?: Yes Hx Renal Disease: Yes (Kidney Stones) Hx Sickle Cell Disease: Yes (sickle cell trait) Hx Kidney Stones: Yes Hx Psychiatric Treatment: Yes (Depression and Schizophrenia) - Surgical History Past Surgical History?: Yes Additional Surgical History: CIRCUMCISION - Social History Smoking Status: Current Every Day Smoker Substance Use Type: None - Medications Home Medications: Home Medications Medication Instructions Recorded Confirmed Last Taken Type Vitamin E 100 unit PO QDAY 08/02/19 08/02/19 Unknown History diphenhydrAMINE [Benadryl CAP] 50 mg PO QDAY 08/02/19 08/02/19 Unknown History haloperidoL [Haldol] 5 mg PO BID 08/02/19 08/02/19 Unknown History ED Physical Exam - General Limitations: No Limitations General appearance: alert, in no apparent distress - Head Head exam: Present: atraumatic, normocephalic - Eye Eye exam: Present: normal appearance, PERRL, EOMI - ENT ENT exam: Present: mucous membranes moist - Neck Neck exam: Present: normal inspection - Respiratory Respiratory exam: Present: normal lung sounds bilaterally. Absent: respiratory distress, wheezes, rales, rhonchi - Cardiovascular Cardiovascular Exam: Present: regular rate, normal rhythm, normal heart sounds. Absent: systolic murmur, diastolic murmur, rubs, gallop - GI/Abdominal GI/Abdominal exam: Present: soft, distended, tenderness, guarding, normal bowel sounds - Rectal Rectal exam: Present: deferred - Extremities Exam Extremities exam: Present: normal inspection - Back Exam Back exam: Present: normal inspection - Neurological Exam Neurological exam: Present: alert, oriented X3 - Psychiatric Psychiatric exam: Present: normal affect, normal mood - Skin Skin exam: Present: warm, dry, intact, normal color. Absent: rash ED Course Vital Signs 09/16/19 09/16/19 01:35 02:37 Temperature 98.6 F Pulse Rate 86 Respiratory 18 20 Rate Blood Pressure 108/72 O2 Sat by Pulse 98 98 Oximetry ED Medical Decision Making - Lab Data Result diagrams: 09/16/19 01:56 09/16/19 01:56 Lab Results 09/16/19 09/16/19 09/16/19 Range/Units 01:56 01:56 01:56 WBC (4.5-11.0) K/mm3 RBC (3.65-5.03) M/mm3 Hgb (11.8-15.2) gm/dl Hct (35.5-45.6) % MCV (84-94) fl MCH (28-32) pg MCHC (32-34) % RDW (13.2-15.2) % Plt Count (140-440) K/mm3 Lymph % (Auto) (13.4-35.0) % [place] % (Auto) (0.0-7.3) % Eos % (Auto) (0.0-4.3) % Baso % (Auto) (0.0-1.8) % Lymph # (1.2-5.4) K/mm3 [place] # (0.0-0.8) K/mm3 Eos # (0.0-0.4) K/mm3 Baso # (0.0-0.1) K/mm3 Seg Neutrophils % (40.0-70.0) % Seg Neutrophils # (1.8-7.7) K/mm3 Sodium 140 (137-145) mmol/L Potassium 4.0 (3.6-5.0) mmol/L Chloride 101.9 (98-107) mmol/L Carbon Dioxide 25 (22-30) mmol/L Anion Gap 17 mmol/L BUN 9 (9-20) mg/dL Creatinine 0.9 (0.8-1.5) mg/dL Estimated GFR > 60 ml/min BUN/Creatinine Ratio 10 % Glucose 81 (75-100) mg/dL Calcium 9.1 (8.4-10.2) mg/dL Salicylates < 0.3 L (2.8-20.0) mg/dL Acetaminophen < 5.0 L (10.0-30.0) ug/mL Plasma/Serum Alcohol (0-0.07) % 09/16/19 09/16/19 Range/Units 01:56 01:56 WBC 6.3 (4.5-11.0) K/mm3 RBC 4.66 (3.65-5.03) M/mm3 Hgb 14.1 (11.8-15.2) gm/dl Hct 41.7 (35.5-45.6) % MCV 90 (84-94) fl MCH 30 (28-32) pg MCHC 34 (32-34) % RDW 13.6 (13.2-15.2) % Plt Count 224 (140-440) K/mm3 Lymph % (Auto) 41.1 H (13.4-35.0) % [place] % (Auto) 7.3 (0.0-7.3) % Eos % (Auto) 2.4 (0.0-4.3) % Baso % (Auto) 0.6 (0.0-1.8) % Lymph # 2.6 (1.2-5.4) K/mm3 [place] # 0.5 (0.0-0.8) K/mm3 Eos # 0.2 (0.0-0.4) K/mm3 Baso # 0.0 (0.0-0.1) K/mm3 Seg Neutrophils % 48.6 (40.0-70.0) % Seg Neutrophils # 3.0 (1.8-7.7) K/mm3 Sodium (137-145) mmol/L Potassium (3.6-5.0) mmol/L Chloride (98-107) mmol/L Carbon Dioxide (22-30) mmol/L Anion Gap mmol/L BUN (9-20) mg/dL Creatinine (0.8-1.5) mg/dL Estimated GFR ml/min BUN/Creatinine Ratio % Glucose (75-100) mg/dL Calcium (8.4-10.2) mg/dL Salicylates (2.8-20.0) mg/dL Acetaminophen (10.0-30.0) ug/mL Plasma/Serum Alcohol 0.01 (0-0.07) % - Medical Decision Making Patient is medical cleared for psychiatric evaluation. Critical care attestation.: If time is entered above; I have spent that time in minutes in the direct care of this critically ill patient, excluding procedure time. ED Disposition Condition: Stable
[2019-09-16 04:00] LABS: Amphetamine Screen,Urine PRESUMPTIVE NEGATIVE; Benzodiazepines Screen,Urine PRESUMPTIVE NEGATIVE; Methadone Screen,Urine PRESUMPTIVE NEGATIVE; Opiate Screen,Urine PRESUMPTIVE NEGATIVE
[2019-09-16 04:04] LABS: Bilirubin,Urine NEG (Negative); Blood,Urine SM (Negative); Color,Urine Yellow (Yellow); Mucus,Urine FEW /HPF; Protein,Urine <15 mg/dL mg/dL (Negative)
[2019-09-16 04:24] LABS: Cannabinoid Screen,Urine PRESUMPTIVE POSITIVE; Cocaine Screen,Urine PRESUMPTIVE POSITIVE
[2019-09-16 08:39] VITALS: BP 105/66
== END 2019-09-16 17:53 ==
LOC: ED 00:34
DX: F20.9 Schizophrenia, unspecified (principal); F32.9 Major depressive disorder, single episode, unspecified; F17.200 Nicotine dependence, unspecified, uncomplicated; Z87.442 Personal history of urinary calculi; Z79.899 Other long term (current) drug therapy; Z91.02 Food additives allergy status; Z91.018 Allergy to other foods; Z88.8 Allergy status to other drugs, medicaments and biological substances
CPT/HCPCS: 36415; 80048; 80307; 80320; 81001; 85025; G0480

== ENCOUNTER 2020-10-12 20:42 | Emergency (ER) | payer SELFPAY ==
--- NOTE | 2020-10-12 20:49 | Emergency Department Report ---
Blank Doc - Documentation Documentation: This is a 40-year-old male that presents with hallucinations and schizophrenia. Stated wanted to jump of the bridge today due to SI. This initial assessment/diagnostic orders/clinical plan/treatment(s) is/are subject to change based on patient's health status, clinical progression and re- assessment by fellow clinical providers in the ED. Further treatment and workup at subsequent clinical providers discretion. Patient/guardians urged not to elope from the ED as their condition may be serious if not clinically assessed and managed. Initial orders include: 1- Patient sent to MAIN ED for further evaluation and treatment 2- geochemistry teacher was notified to have patient be brought back [place]. 3- RN was notified to keep patient as close range and observation until room available 4- Patient presents with substantial risk of imminent harm to self, appears to be so unable to care for his/her own physical health and safety as to create an imminently life-endangering crisis, and has committed/expressed life endangering crisis to self. Due to this and other complaints, patient is put on psych hold.
[2020-10-12 21:11] LABS: Basophils # (Auto) 0.1 K/mm3 (0.0-0.1); Basophils % (Auto) 2.1 % (0.0-1.8); Eosinophils # (Auto) 0.1 K/mm3 (0.0-0.4); Hematocrit 39.4 % (35.5-45.6); Hemoglobin 13.5 gm/dl (11.8-15.2); Lymphocytes # (Auto) 2.4 K/mm3 (1.2-5.4); Lymphocytes % (Auto) 38.1 % (13.4-35.0); Mean Corpuscular HGB Conc 34 % (32-34); Mean Corpuscular Volume 90 fl (84-94); Monocytes # (Auto) 0.5 K/mm3 (0.0-0.8); Monocytes % (Auto) 7.7 % (0.0-7.3); Platelet Count 326 K/mm3 (140-440); Red Blood Count 4.41 M/mm3 (3.65-5.03); Red Cell Distribution Width 14.5 % (13.2-15.2)
[2020-10-12 21:12] LABS: Bilirubin,Urine NEG (Negative); Blood,Urine NEG (Negative); Color,Urine Yellow (Yellow); Protein,Urine <15 mg/dL mg/dL (Negative); Urobilinogen,Urine < 2.0 mg/dL (<2.0); WBC,Urine < 1.0 /HPF (0.0-6.0)
[2020-10-12 21:20] LABS: Amphetamine Screen,Urine Negative; Benzodiazepines Screen,Urine Negative; Cannabinoid Screen,Urine Negative; Cocaine Screen,Urine Negative; Methadone Screen,Urine Negative; Opiate Screen,Urine Negative
[2020-10-12 21:24] LABS: BUN/Creatinine Ratio 20; Blood Urea Nitrogen 20 mg/dL (9-20); Calcium 8.8 mg/dL (8.4-10.2); Hemolysis Index 12
[2020-10-13] MEDS ORDERED: HALOPERIDOL 5 MG TAB PO ONE ×2 (00:26→00:33)
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
[2020-10-13] MEDS: HALOPERIDOL 5 MG TAB PO ONE ×2 (00:30→00:34)
[2020-10-13 07:51] VITALS: BP 113/51
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
--- NOTE | 2020-10-13 13:37 | Emergency Department Report ---
Blank Doc - Documentation Documentation: Patient seen, evaluated, and cleared by psychiatry. 1013 has been rescinded. Prescriptions have been written for patient by psychiatry. I spoke with patient and he states that he is not having any suicidal homicidal ideations. Patient states he feels that he just needs to be back on his medications. Patient states he has no intention on killing himself. Will discharge at this time.
== END 2020-10-13 15:37 | disposition home or self-care (01) ==
LOC: ED 20:42
DX: F20.0 Paranoid schizophrenia (principal); R45.851 Suicidal ideations; F17.200 Nicotine dependence, unspecified, uncomplicated; Z98.890 Other specified postprocedural states; Z79.899 Other long term (current) drug therapy; Z88.8 Allergy status to other drugs, medicaments and biological substances; Z91.018 Allergy to other foods
CPT/HCPCS: 36415; 80048; 80307; 80320; 81001; 85025; G0480

== ENCOUNTER 2020-10-15 23:08 | Emergency (ER) | payer SELFPAY ==
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
[2020-10-16 01:02] LABS: BUN/Creatinine Ratio 23; Blood Urea Nitrogen 23 mg/dL (9-20); Calcium 9.3 mg/dL (8.4-10.2); Hemolysis Index 6
[2020-10-16 01:41] LABS: Basophils % (Auto) 0.5 % (0.0-1.8); Eosinophils # (Auto) 0.1 K/mm3 (0.0-0.4); Eosinophils % (Auto) 1.6 % (0.0-4.3); Hematocrit 42.9 % (35.5-45.6); Hemoglobin 14.2 gm/dl (11.8-15.2); Lymphocytes # (Auto) 1.5 K/mm3 (1.2-5.4); Lymphocytes % (Auto) 25.4 % (13.4-35.0); Mean Corpuscular HGB Conc 33 % (32-34); Mean Corpuscular Volume 91 fl (84-94); Monocytes # (Auto) 0.5 K/mm3 (0.0-0.8); Monocytes % (Auto) 8.3 % (0.0-7.3); Platelet Count 279 K/mm3 (140-440); Red Blood Count 4.72 M/mm3 (3.65-5.03); Red Cell Distribution Width 14.7 % (13.2-15.2)
--- NOTE | 2020-10-16 01:55 | Emergency Department Report ---
ED Psych HPI - General Chief Complaint: Psych Stated Complaint: CARLIE EVAL Time Seen by Provider: 10/16/20 01:44 Source: patient Mode of arrival: Ambulatory Limitations: No Limitations - History of Present Illness Initial Comments: Patient is a 40-year-old male who presents emergency room with complaints of hallucinations. Patient states to have visual and audio hallucinations. Patient states his voices are telling him to hurt himself and hurt other people. Patient states his symptoms been going on for a while and are worsening. Patient states he does not want to hurt himself but he wants to get some help. Patient states he is seeing butterflies and burrows floating around. Patient denies recent travel. Patient denies recent international travel. Patient denies exposure to the novel coronavirus. Patient denies sick contacts. Patient denies fever and chills. Patient denies cough. Patient denies diarrhea. Patient denies coming in contact with anybody with symptoms of the novel coronavirus. MD Complaint: other - Related Data Home Medications Medication Instructions Recorded Confirmed Last Taken Vitamin E 100 unit PO QDAY 08/02/19 08/02/19 Unknown diphenhydrAMINE [Benadryl CAP] 50 mg PO QDAY 08/02/19 08/02/19 Unknown haloperidoL [Haldol] 5 mg PO BID 08/02/19 08/02/19 Unknown Previous Rx's Medication Instructions Recorded Last Taken Type Benztropine [Cogentin] 1 mg PO BID 30 Days #60 tab 10/13/20 Unknown Rx OLANzapine [ZyPREXA] 5 mg PO QDAY 30 Days #30 tablet 10/13/20 Unknown Rx buPROPion [Wellbutrin] 100 mg PO BID 30 Days #60 tab 10/13/20 Unknown Rx Allergies Allergy/AdvReac Type Severity Reaction Status Date / Time risperidone [From Risperdal] Allergy Shortness Verified 10/07/17 21:26 of Breath tomato Allergy Rash Verified 10/07/17 21:26 ED Review of Systems ROS: Stated complaint: MH EVAL Other details as noted in HPI Constitutional: denies: chills, fever Eyes: denies: eye pain, eye discharge, vision change ENT: denies: ear pain, throat pain Respiratory: denies: cough, shortness of breath, wheezing Cardiovascular: denies: chest pain, palpitations Endocrine: no symptoms reported Gastrointestinal: denies: abdominal pain, nausea, diarrhea Genitourinary: denies: urgency, dysuria Musculoskeletal: denies: back pain, joint swelling, arthralgia Skin: denies: rash, lesions Neurological: denies: headache, weakness, paresthesias Psychiatric: as per HPI, depression, auditory hallucinations, visual hallucinations Hematological/Lymphatic: denies: easy bleeding, easy bruising ED Past Medical Hx - Past Medical History Previous Medical History?: Yes Hx Renal Disease: Yes (Kidney Stones) Hx Sickle Cell Disease: Yes (sickle cell trait) Hx Kidney Stones: Yes Hx Psychiatric Treatment: Yes (Depression and Schizophrenia) - Surgical History Past Surgical History?: Yes Additional Surgical History: CIRCUMCISION - Family History Family history: no significant - Social History Smoking Status: Current Every Day Smoker Substance Use Type: None - Medications Home Medications: Home Medications Medication Instructions Recorded Confirmed Last Taken Type Vitamin E 100 unit PO QDAY 08/02/19 08/02/19 Unknown History diphenhydrAMINE [Benadryl CAP] 50 mg PO QDAY 08/02/19 08/02/19 Unknown History haloperidoL [Haldol] 5 mg PO BID 08/02/19 08/02/19 Unknown History Benztropine [Cogentin] 1 mg PO BID 30 Days #60 tab 10/13/20 Unknown Rx OLANzapine [ZyPREXA] 5 mg PO QDAY 30 Days #30 tablet 10/13/20 Unknown Rx buPROPion [Wellbutrin] 100 mg PO BID 30 Days #60 tab 10/13/20 Unknown Rx ED Physical Exam - General Limitations: No Limitations General appearance: alert, in no apparent distress - Head Head exam: Present: atraumatic, normocephalic - Eye Eye exam: Present: normal appearance - ENT ENT exam: Present: mucous membranes moist - Neck Neck exam: Present: normal inspection - Respiratory Respiratory exam: Present: normal lung sounds bilaterally. Absent: respiratory distress - Cardiovascular Cardiovascular Exam: Present: regular rate, normal rhythm. Absent: systolic murmur, diastolic murmur, rubs, gallop - GI/Abdominal GI/Abdominal exam: Present: soft, normal bowel sounds - Rectal Rectal exam: Present: deferred - Extremities Exam Extremities exam: Present: normal inspection - Back Exam Back exam: Present: normal inspection - Neurological Exam Neurological exam: Present: alert, oriented X3 - Psychiatric Psychiatric exam: Present: normal affect, normal mood - Skin Skin exam: Present: warm, dry, intact, normal color. Absent: rash ED Course Vital Signs 10/15/20 23:53 Temperature 98.9 F Pulse Rate 87 Respiratory 18 Rate Blood Pressure 140/72 O2 Sat by Pulse 95 Oximetry - Reevaluation(s) Reevaluation #1: Patient is medically cleared. Patient will remain in the ER as an ER hold. Patient's father who lives here will cope will ask psychiatry and mental health team. 10/16/20 03:11 ED Medical Decision Making - Lab Data Result diagrams: 10/16/20 00:10 10/16/20 00:10 - Medical Decision Making Patient is a 40-year-old male that presents emergency room for mental health evaluation. Patient is having audio and visual hallucinations. Patient also having command hallucinations. The voices are telling the patient to hurt himself and hurt other people. Patient had labs done which were essentially unremarkable. Patient is medically cleared. Patient will remain in the ER as an ER hold until the the patient is cleared by mental health and psych. Patient's final disposition will come from her psych and mental health team.. - Differential Diagnosis Hallucinations, psychosis, command hallucinations Critical care attestation.: If time is entered above; I have spent that time in minutes in the direct care of this critically ill patient, excluding procedure time. ED Disposition Clinical Impression: Hallucination, Acute psychosis Disposition: DC/TX-65 PSY HOSP/PSY UNIT Is pt being admited?: No Does the pt Need Aspirin: No Condition: Stable Referrals: PRIMARY CARE, [Primary Care Provider] - 2-3 Days Time of Disposition: 03:13
[2020-10-16 02:35] LABS: Bilirubin,Urine NEG (Negative); Blood,Urine NEG (Negative); Color,Urine Yellow (Yellow); Mucus,Urine FEW /HPF; Protein,Urine <15 mg/dL mg/dL (Negative); RBC,Urine < 1.0 /HPF (0.0-6.0); WBC,Urine < 1.0 /HPF (0.0-6.0)
[2020-10-16 02:44] LABS: Amphetamine Screen,Urine PRESUMPTIVE NEGATIVE; Benzodiazepines Screen,Urine PRESUMPTIVE NEGATIVE; Cannabinoid Screen,Urine PRESUMPTIVE NEGATIVE; Cocaine Screen,Urine PRESUMPTIVE NEGATIVE; Methadone Screen,Urine PRESUMPTIVE NEGATIVE; Opiate Screen,Urine PRESUMPTIVE NEGATIVE
--- NOTE | 2020-10-16 10:10 | Consultation ---
History of Present Illness - Reason for Consult Consult date: 10/16/20 Reason for consult: suicidal thoughts - History of Present Psychiatric Illness Per ED note: "Patient is a 40-year-old male who presents emergency room with complaints of hallucinations. Patient states to have visual and audio hallucinations. Patient states his voices are telling him to hurt himself and hurt other people. Patient states his symptoms been going on for a while and are worsening. Patient states he does not want to hurt himself but he wants to get some help. Patient states he is seeing butterflies and burrows floating around." During my interview with the patient he is sitting on the bed. He expresses hearing voices telling him that he is no good. The patient reports feeling homicidal and says "I feel like I might do something some somebody." He is not making sense at times and starts talking about "wrongful attempt." He says "I am hearing gun shots and voices calling me a coward." He says "I haven't slept in days." PAST PSYCHIATRIC HISTORY Diagnoses: schizophrenia Suicide attempts or Self-harm behavior: Denies Prior psychiatric hospitalizations: Yes Substance Abuse history: Denies Previous psychiatric medications tried: Risperidone Outpatient treatment: Yes, but not at present PAST MEDICAL HISTORY: none reported Family Psychiatric History: None reported or documented SOCIAL HISTORY Marital Status: Single Living Arrangements: Hotel Employment Status: Disabled Access to guns/weapons: Denies Education: college History of Abuse: none reported Legal History: none reported REVIEW OF SYSTEMS Constitutional: Negative for weight loss ENT: Negative for stridor Respiratory: Negative for cough or hemoptysis All other systems reviewed and are negative MENTAL STATUS EXAMINATION General Appearance and Behavior: Age appropriate, good hygiene, wearing appropriate clothes, poor eye contact, cooperative polite with questioning. Cooperation: Participating/engaged Psychomotor Behavior: unremarkable and within normal limits Mood: "okay, cold" Affect and affective range: congruent with mood Thought Process: oriented Thought Content: hallucinations Speech: Normal volume, Regular rate and rhythm, Suicidal Ideation: Denies, but appears to be passive Homicidal Ideation: Denies Hallucinations: A/V Delusions: None elicited Impulse Control: Unimpaired Insight and Judgment: Limited insight and judgment, Memory: Normal, Attention: Normal Orientation: Alert, oriented Assessment and Plan (1) Schizophrenia Current Visit: Yes Status: Acute Treatment plan 1013 Continue previously prescribed medications Sitter: Defer to primary Medical: per primary Disposition: Recommend acute psychiatric inpatient. The patient symptoms can be managed on outpatient basis. The patient should follow up with outpatient psych for med management Will follow. Thank you for this consult Case staffed with Dr. Cervantes Medications and Allergies Allergies Allergy/AdvReac Type Severity Reaction Status Date / Time risperidone [From Risperdal] Allergy Shortness Verified 10/07/17 21:26 of Breath tomato Allergy Rash Verified 10/07/17 21:26 Home Medications Medication Instructions Recorded Confirmed Last Taken Type Vitamin E 100 unit PO QDAY 08/02/19 08/02/19 Unknown History diphenhydrAMINE [Benadryl CAP] 50 mg PO QDAY 08/02/19 08/02/19 Unknown History haloperidoL [Haldol] 5 mg PO BID 08/02/19 08/02/19 Unknown History Benztropine [Cogentin] 1 mg PO BID 30 Days #60 tab 10/13/20 Unknown Rx OLANzapine [ZyPREXA] 5 mg PO QDAY 30 Days #30 tablet 10/13/20 Unknown Rx buPROPion [Wellbutrin] 100 mg PO BID 30 Days #60 tab 10/13/20 Unknown Rx Mental Status Exam - Vital signs Last Vital Signs Temp 98.9 F 10/15/20 23:53 Pulse 87 10/15/20 23:53 Resp 18 10/15/20 23:53 BP 140/72 10/15/20 23:53 Pulse Ox 95 10/15/20 23:53 Results Result Diagrams: 10/16/20 00:10 10/16/20 00:10 Abnormal lab results 10/16/20 10/16/20 10/16/20 Range/Units 00:10 00:10 00:10 [place] % (Auto) (0.0-7.3) % BUN 23 H (9-20) mg/dL Salicylates < 0.3 L (2.8-20.0) mg/dL Acetaminophen 5.0 L (10.0-30.0) ug/mL 10/16/20 Range/Units 00:10 [place] % (Auto) 8.3 H (0.0-7.3) % BUN (9-20) mg/dL Salicylates (2.8-20.0) mg/dL Acetaminophen (10.0-30.0) ug/mL All other labs normal.
[2020-10-16] MEDS ORDERED: risperiDONE 0.25 MG TAB PO SCH (11:00)
[2020-10-16] MEDS ORDERED: traZODone 50 MG TAB PO SCH (22:00)
[2020-10-17 08:53] VITALS: BP 144/72
== END 2020-10-17 10:03 ==
LOC: ED 23:08
DX: F23 Brief psychotic disorder (principal); F17.200 Nicotine dependence, unspecified, uncomplicated; Z79.899 Other long term (current) drug therapy; Z88.8 Allergy status to other drugs, medicaments and biological substances

== ENCOUNTER 2020-12-08 09:16 | Emergency (ER) | payer MEDICARE | END 2020-12-08 10:00 | disposition left against medical advice (07) | LOC: ED 09:16 | DX: Z53.21 Procedure and treatment not carried out due to patient leaving prior to being seen by health care provider (principal) ==

== ENCOUNTER 2020-12-08 18:16 | Emergency (ER) | payer MEDICARE ==
[2020-12-08 20:48] LABS: Basophils # (Auto) 0.1 K/mm3 (0.0-0.1); Basophils % (Auto) 1.5 % (0.0-1.8); Eosinophils # (Auto) 0.3 K/mm3 (0.0-0.4); Eosinophils % (Auto) 3.5 % (0.0-4.3); Hematocrit 44.7 % (35.5-45.6); Hemoglobin 15.1 gm/dl (11.8-15.2); Lymphocytes # (Auto) 2.6 K/mm3 (1.2-5.4); Lymphocytes % (Auto) 34.8 % (13.4-35.0); Mean Corpuscular HGB Conc 34 % (32-34); Mean Corpuscular Volume 91 fl (84-94); Monocytes # (Auto) 0.5 K/mm3 (0.0-0.8); Monocytes % (Auto) 6.8 % (0.0-7.3); Platelet Count 282 K/mm3 (140-440); Red Blood Count 4.91 M/mm3 (3.65-5.03); Red Cell Distribution Width 13.8 % (13.2-15.2)
[2020-12-08 21:06] LABS: BUN/Creatinine Ratio 22; Blood Urea Nitrogen 20 mg/dL (9-20); Hemolysis Index 53
[2020-12-08 21:44] LABS: Amphetamine Screen,Urine Negative; Benzodiazepines Screen,Urine Negative; Cannabinoid Screen,Urine Negative; Cocaine Screen,Urine Negative; Methadone Screen,Urine Negative; Opiate Screen,Urine Negative
[2020-12-08 21:46] LABS: Bilirubin,Urine NEG (Negative); Blood,Urine NEG (Negative); Color,Urine Yellow (Yellow); Mucus,Urine FEW /HPF; Protein,Urine <15 mg/dL mg/dL (Negative)
--- NOTE | 2020-12-08 21:47 | Emergency Department Report ---
HPI - General Chief Complaint: Altered Mental Status Time Seen by Provider: 12/08/20 21:15 - HPI HPI: Room 12 G The patient is a 40-year-old male present with a chief complaint of auditory hallucinations/homicidal ideation. Patient has history of schizophrenia and states he has been having auditory hallucinations since yesterday. He states the voices are telling him to "kill the alok sleeping beside" him. Patient also states he hears voices telling him to kill himself. Patient denies any attempts at harming himself but states his plan was to hang himself with a rope. Patient states the voices was that of Lucifer. ED Past Medical Hx - Past Medical History Hx Renal Disease: Yes (Kidney Stones) Hx Sickle Cell Disease: Yes (sickle cell trait) Hx Kidney Stones: Yes Hx Psychiatric Treatment: Yes (Depression and Schizophrenia) - Surgical History Additional Surgical History: CIRCUMCISION - Family History Family history: no significant - Social History Smoking Status: Current Every Day Smoker (1/3 pack/day) Substance Use Type: None (Denies illicit drug use), Alcohol (Frequently) - Medications Home Medications: Home Medications Medication Instructions Recorded Confirmed Last Taken Type Vitamin E 100 unit PO QDAY 08/02/19 08/02/19 Unknown History diphenhydrAMINE [Benadryl CAP] 50 mg PO QDAY 08/02/19 08/02/19 Unknown History haloperidoL [Haldol] 5 mg PO BID 08/02/19 08/02/19 Unknown History Benztropine [Cogentin] 1 mg PO BID 30 Days #60 tab 10/13/20 Unknown Rx OLANzapine [ZyPREXA] 5 mg PO QDAY 30 Days #30 tablet 10/13/20 Unknown Rx buPROPion [Wellbutrin] 100 mg PO BID 30 Days #60 tab 10/13/20 Unknown Rx ED Review of Systems ROS: Stated complaint: MH EVALUATION Other details as noted in HPI Constitutional: no symptoms reported Eyes: denies: eye pain ENT: denies: throat pain Respiratory: no symptoms reported Cardiovascular: denies: chest pain Endocrine: no symptoms reported Gastrointestinal: denies: abdominal pain Genitourinary: denies: dysuria Musculoskeletal: denies: back pain Psychiatric: auditory hallucinations, homicidal thoughts, suicidal thoughts Physical Exam - Physical Exam Vital Signs: Vital Signs 12/08/20 20:28 Temperature 98.1 F Pulse Rate 107 H Respiratory 18 Rate Blood Pressure 154/78 O2 Sat by Pulse 97 Oximetry Physical Exam: GENERAL: The patient is well-developed well-nourished male sitting in chair not appearing to be in acute distress. [] HEENT: Normocephalic. Atraumatic. Extraocular motions are intact. Patient has moist mucous membranes. NECK: Supple. Trachea midline CHEST/LUNGS: Clear to auscultation. There is no respiratory distress noted. HEART/CARDIOVASCULAR: Regular. There is no tachycardia. There is no gallop rub or murmur. ABDOMEN: Abdomen is soft, nontender. Patient has normal bowel sounds. There is no abdominal distention. SKIN: There is no rash. There is no edema. There is no diaphoresis. NEURO: The patient is awake, alert, and oriented. The patient is cooperative. The patient has no focal neurologic deficits. The patient has normal speech MUSCULOSKELETAL: There is no evidence of acute injury. ED Course Vital Signs 12/08/20 20:28 Temperature 98.1 F Pulse Rate 107 H Respiratory 18 Rate Blood Pressure 154/78 O2 Sat by Pulse 97 Oximetry - Consultations Consultation #1: 12/08/20 21:30 [place] transfer line called ED Medical Decision Making - Lab Data Result diagrams: 12/08/20 20:35 12/08/20 20:35 Laboratory Tests 12/08/20 12/08/20 12/08/20 20:35 20:35 20:35 WBC RBC Hgb Hct MCV MCH MCHC RDW Plt Count Lymph % (Auto) Sharkey % (Auto) Eos % (Auto) Baso % (Auto) Lymph # (Auto) Sharkey # (Auto) Eos # (Auto) Baso # (Auto) Seg Neutrophils % Seg Neutrophils # Sodium 138 Potassium 4.6 Chloride 102.4 Carbon Dioxide 23 Anion Gap 17 BUN 20 Creatinine 0.9 Estimated GFR > 60 BUN/Creatinine Ratio 22 Glucose 126 H Calcium 9.0 Urine Color Urine Turbidity Urine pH Ur Specific Alliance Urine Protein Urine Glucose (UA) Urine Ketones Urine Blood Urine Nitrite Urine Bilirubin Urine Urobilinogen Ur Leukocyte Esterase Urine WBC (Auto) Urine RBC (Auto) U Epithel Cells (Auto) Urine Mucus Salicylates < 0.3 L Urine Opiates Screen Urine Methadone Screen Acetaminophen 5.0 L Ur Barbiturates Screen Ur Phencyclidine Scrn Ur Amphetamines Screen U Benzodiazepines Scrn Urine Cocaine Screen U Marijuana (THC) Screen Drugs of Abuse Note Plasma/Serum Alcohol 12/08/20 12/08/20 12/08/20 20:35 20:35 Unknown WBC 7.4 RBC 4.91 Hgb 15.1 Hct 44.7 MCV 91 MCH 31 MCHC 34 RDW 13.8 Plt Count 282 Lymph % (Auto) 34.8 Sharkey % (Auto) 6.8 Eos % (Auto) 3.5 Baso % (Auto) 1.5 Lymph # (Auto) 2.6 Sharkey # (Auto) 0.5 Eos # (Auto) 0.3 Baso # (Auto) 0.1 Seg Neutrophils % 53.4 Seg Neutrophils # 4.0 Sodium Potassium Chloride Carbon Dioxide Anion Gap BUN Creatinine Estimated GFR BUN/Creatinine Ratio Glucose Calcium Urine Color Yellow Urine Turbidity Clear Urine pH 5.0 Ur Specific Alliance 1.023 Urine Protein <15 mg/dl Urine Glucose (UA) Neg Urine Ketones Neg Urine Blood Neg Urine Nitrite Neg Urine Bilirubin Neg Urine Urobilinogen 2.0 Ur Leukocyte Esterase Neg Urine WBC (Auto) 1.0 Urine RBC (Auto) 5.0 U Epithel Cells (Auto) 1.0 Urine Mucus Few Salicylates Urine Opiates Screen Urine Methadone Screen Acetaminophen Ur Barbiturates Screen Ur Phencyclidine Scrn Ur Amphetamines Screen U Benzodiazepines Scrn Urine Cocaine Screen U Marijuana (THC) Screen Drugs of Abuse Note Plasma/Serum Alcohol 0.04 12/08/20 Unknown WBC RBC Hgb Hct MCV MCH MCHC RDW Plt Count Lymph % (Auto) Sharkey % (Auto) Eos % (Auto) Baso % (Auto) Lymph # (Auto) Sharkey # (Auto) Eos # (Auto) Baso # (Auto) Seg Neutrophils % Seg Neutrophils # Sodium Potassium Chloride Carbon Dioxide Anion Gap BUN Creatinine Estimated GFR BUN/Creatinine Ratio Glucose Calcium Urine Color Urine Turbidity Urine pH Ur Specific Alliance Urine Protein Urine Glucose (UA) Urine Ketones Urine Blood Urine Nitrite Urine Bilirubin Urine Urobilinogen Ur Leukocyte Esterase Urine WBC (Auto) Urine RBC (Auto) U Epithel Cells (Auto) Urine Mucus Salicylates Urine Opiates Screen Negative Urine Methadone Screen Negative Acetaminophen Ur Barbiturates Screen Negative Ur Phencyclidine Scrn Negative Ur Amphetamines Screen Negative U Benzodiazepines Scrn Negative Urine Cocaine Screen Negative U Marijuana (THC) Screen Negative Drugs of Abuse Note Disclamer Plasma/Serum Alcohol - Differential Diagnosis Schizophrenia, auditory hallucinations Critical care attestation.: If time is entered above; I have spent that time in minutes in the direct care of this critically ill patient, excluding procedure time. ED Disposition Clinical Impression: Schizophrenia, Auditory hallucination, Homicidal ideations, Suicidal ideations Disposition: DC/TX-65 PSY HOSP/PSY UNIT Is pt being admited?: No Does the pt Need Aspirin: No Condition: Fair Referrals: CAROL VARGAS, RN [Primary Care Provider] - 3-5 Days Time of Disposition: 22:06 (Awaiting acceptance)
--- NOTE | 2020-12-09 08:36 | Consultation ---
History of Present Illness - Reason for Consult Consult date: 12/09/20 Reason for consult: MHE Requesting physician: KAIN KHAN - History of Present Psychiatric Illness Per ED Provider: The patient is a 40-year-old male present with a chief complaint of auditory hallucinations/homicidal ideation. Patient has history of schizophrenia and states he has been having auditory hallucinations since yesterday. He states the voices are telling him to "kill the alok sleeping beside" him. Patient also states he hears voices telling him to kill himself. Patient denies any attempts at harming himself but states his plan was to hang himself with a rope. Patient states the voices was that of Lucifer. PSYCH HPI Patient is a 40-year-old currently homeless, single, unemployed -[place] male past psychiatric history of paranoid schizophrenia who had presented to the ED with chief complaint of homicidal ideation and requesting psychiatric evaluation. Patient reported his been having visual and auditory hallucinations, and the auditory hallucinations telling patient he should not have to wake up because he does not have any medication and has nothing to live for, as he is having commanding suicidal ideations and also voice telling him to hurt another person. Patient is known to me from prior encounter. PAST PSYCHIATRIC HISTORY Diagnoses: Paranoid Suicide attempts or Self-harm behavior: None reported Prior psychiatric hospitalizations: Yes Substance Abuse history: None reported Previous psychiatric medications tried: Zyprexa, Cogentin and Wellbutrin Outpatient treatment: None reported PAST MEDICAL HISTORY: None reported Family Psychiatric History: None reported or documented SOCIAL HISTORY Marital Status: Single Living Arrangements: Homeless Employment Status: Unemployed Access to guns/weapons: None reported Education: High school History of Abuse: None report Legal History: None reported REVIEW OF SYSTEMS Constitutional: Negative for weight loss ENT: Negative for stridor Respiratory: Negative for cough or hemoptysis All other systems reviewed and are negative MENTAL STATUS EXAMINATION General Appearance and Behavior: Age appropriate, fair hygiene, wearing appropriate clothes, good eye contact, cooperative polite with questioning. Cooperation: Participating/engaged Psychomotor Behavior: unremarkable and within normal limits Mood: Good Affect and affective range: congruent with mood Thought Process: Circumstantial Thought Content: Paranoid Speech: Normal volume, Regular rate and rhythm, Intellectual Functioning: Average Suicidal Ideation: Denies SI Homicidal Ideation: Denies HI Impulse Control:impaired Insight and Judgment: Normal insight and judgment, Memory: Impaired Attention: Normal, Orientation: Alert, oriented, Assessment and Plan - Psychiatric problem (1) Paranoid schizophrenia Current Visit: Yes Status: Acute F20 Treatment Plan will restart medications. MEDICATIONS: Risks, benefits and alternatives of medications discussed with the patient, questions answered and consent obtained from patient. PSYCHOTHERAPY: Supportive psychotherapy provided MEDICAL: Per primary team DELIRIUM PRECAUTIONS: Please re-orient patient frequently, keep lights on during the day, and minimize benzodiazepines and opiates as these medications could worsen patient's confusion. 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 Case discussed with Dr. Cervantes who agrees with current disposition LEGAL STATUS: 1013 FOLLOW-UP: Will sign off Thank you for the consult. Please contact with any questions and/or concerns. Medications and Allergies Allergies Allergy/AdvReac Type Severity Reaction Status Date / Time risperidone [From Risperdal] Allergy Shortness Verified 10/16/20 10:32 of Breath tomato Allergy Rash Verified 10/16/20 10:32 Home Medications Medication Instructions Recorded Confirmed Last Taken Type Vitamin E 100 unit PO QDAY 08/02/19 08/02/19 Unknown History diphenhydrAMINE [Benadryl CAP] 50 mg PO QDAY 08/02/19 08/02/19 Unknown History haloperidoL [Haldol] 5 mg PO BID 08/02/19 08/02/19 Unknown History Benztropine [Cogentin] 1 mg PO BID 30 Days #60 tab 10/13/20 Unknown Rx OLANzapine [ZyPREXA] 5 mg PO QDAY 30 Days #30 tablet 10/13/20 Unknown Rx buPROPion [Wellbutrin] 100 mg PO BID 30 Days #60 tab 10/13/20 Unknown Rx Mental Status Exam - Vital signs Last Vital Signs Temp 97.9 F 12/09/20 03:39 Pulse 94 H 12/09/20 03:39 Resp 18 12/09/20 03:39 BP 140/82 12/09/20 03:39 Pulse Ox 97 12/09/20 03:39 Results Result Diagrams: 12/08/20 20:35 12/08/20 20:35 Abnormal lab results 12/08/20 12/08/20 12/08/20 Range/Units 20:35 20:35 20:35 Glucose 126 H (75-100) mg/dL Salicylates < 0.3 L (2.8-20.0) mg/dL Acetaminophen 5.0 L (10.0-30.0) ug/mL All other labs normal.
--- NOTE | 2020-12-09 14:26 | Emergency Department Report ---
Blank Doc - Documentation Documentation: PSYCH CONSULT NOTE PSYCH HPI 40 year old male present for psychiatric assessments for homicidal thought with the history of paranoid and schizophrenia. Persistent reports that he is destitute and walk to the ED from his place for his visual and sound related visualizations got worse. The voice telling him "you do not need to wake up since he does not have drugs to require, and i am seeing ladies and man strolling together". understanding denies current suicidal ideation, but the voice that has been hearing telling him to harmed others at a time. Eventhough, he denies current self destructive or destructive contemplations , conceded he had one long time a go, attempted to cut his wrist with knifes. PAST PSYCHIATRIC HISTORY Diagnoses: Paranoid, schizophrenia Suicide attempts or Self-harm behavior: None reported Prior psychiatric hospitalizations: Yes Substance Abuse history: None reported Previous psychiatric medications tried: Zyprexa, Cogentin and Wellbutrin Outpatient treatment: None reported PAST MEDICAL HISTORY: None reported Family Psychiatric History: None reported or documented SOCIAL HISTORY Marital Status: Single Living Arrangements: Homeless Employment Status: Unemployed Access to guns/weapons: None reported Education: High school History of Abuse: None report Legal History: None reported REVIEW OF SYSTEMS Constitutional: Negative for weight loss ENT: Negative for stridor Respiratory: Negative for cough or hemoptysis All other systems reviewed and are negative MENTAL STATUS EXAMINATION General Appearance and Behavior: Age appropriate, fair hygiene, wearing appropriate clothes, good eye contact, cooperative polite with questioning. Cooperation: Participating/engaged Psychomotor Behavior: unremarkable and within normal limits Mood: Ok Affect and affective range: congruent with mood Thought Process: Circumstantial Thought Content: Paranoid Speech: Normal volume, Regular rate and rhythm, Intellectual Functioning: Average Suicidal Ideation: Denies SI Homicidal Ideation: Denies HI Impulse Control:impaired Insight and Judgment: Normal insight and judgment, Memory: Impaired Attention: Limited Orientation: Alert, oriented,
[2020-12-09] MEDS: DIVALPROEX DR 250 MG TAB PO SCH ×2 (15:33→20:46)
[2020-12-10] MEDS: DIVALPROEX DR 250 MG TAB PO SCH ×2 (10:20→14:45)
[2020-12-11] MEDS: DIVALPROEX DR 250 MG TAB PO SCH ×2 (11:55→11:56)
--- NOTE | 2020-12-11 12:49 | Progress Note ---
Subjective - Reason for Consult Consult date: 12/11/20 Reason for consult: SI - Chief Complaint Chief complaint: Per Nurse Note: pt refused meds The patient was seen today. He is a/o x 2. The patient says "I feel real ugly right now. They told me I got coronavirus." He says he's been sleeping okay. He says his appetite is "in and out." The patient denies SI/HI, but states "this Coronavirus got me feeling ugly, other than that I'm alright." He denies h allucinations of any kind. REVIEW OF SYSTEMS Constitutional: Negative for weight loss ENT: Negative for stridor Respiratory: Negative for cough or hemoptysis All other systems reviewed and are negative MENTAL STATUS EXAMINATION General Appearance and Behavior: Age appropriate, fair hygiene, wearing appropriate clothes, good eye contact, cooperative polite with questioning. Cooperation: Participating/engaged Psychomotor Behavior: unremarkable and within normal limits Mood: "alright" Affect and affective range: congruent with mood Thought Process: Circumstantial Thought Content: None Speech: Normal volume, Regular rate and rhythm, Intellectual Functioning: Average Suicidal Ideation: Denies SI Homicidal Ideation: Denies HI Impulse Control: Limited Insight and Judgment: Normal insight and judgment, Memory: Limited Attention: Normal, Orientation: Alert, oriented, Assessment and Plan (1) Paranoid schizophrenia Current Visit: Yes Status: Acute F20 Treatment Plan D/c 1013 Continue previously prescribed medications. No scripts given Risks, benefits and alternatives of medications discussed with the patient, questions answered and consent obtained from patient. PSYCHOTHERAPY: Supportive psychotherapy provided MEDICAL: Per primary team DELIRIUM PRECAUTIONS: Please re-orient patient frequently, keep lights on during the day, and minimize benzodiazepines and opiates as these medications could worsen patient's confusion. 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 The patient understands that if suicidal thoughts or fear of endangerment are to arise he is to seek immediate attention including ER/911, and/or crisis hotline. Follow up with outpatient psych and primary 7 to 14 days upon discharge Inspector Boiler to give resources for outpatient and safety play. Will sign off Thank you for the consult. Please contact with any questions and/or concerns. Case discussed with Dr. Cervantes Mental Status Exam - Vital signs Last Vital Signs Temp 97.8 F 12/11/20 09:00 Pulse 78 12/11/20 09:00 Resp 18 12/11/20 09:00 BP 128/68 12/11/20 09:00 Pulse Ox 98 12/11/20 09:00
[2020-12-11 19:16] VITALS: BP 132/68
== END 2020-12-11 19:15 | disposition home or self-care (01) ==
LOC: EEVIPCON 18:16 → ED 18:16
DX: U07.1 COVID-19 (principal); F25.1 Schizoaffective disorder, depressive type; R45.850 Homicidal ideations; R45.851 Suicidal ideations; F17.200 Nicotine dependence, unspecified, uncomplicated; Z88.8 Allergy status to other drugs, medicaments and biological substances; Z91.018 Allergy to other foods; Z79.899 Other long term (current) drug therapy
CPT/HCPCS: 36415; 80048; 80307; 81001; 85025; 99284; U0003; 80320; G0480

== ENCOUNTER 2021-03-06 21:00 | Emergency (ER) | payer SELFPAY ==
[2021-03-06 22:08] LABS: Hematocrit 40.9 % (35.5-45.6); Hemoglobin 14.2 gm/dl (11.8-15.2); Mean Corpuscular HGB Conc 35 % (32-34); Mean Corpuscular Volume 91 fl (84-94); Platelet Count 217 K/mm3 (140-440); Red Blood Count 4.48 M/mm3 (3.65-5.03); Red Cell Distribution Width 14.6 % (13.2-15.2)
[2021-03-06 22:21] LABS: BUN/Creatinine Ratio 17; Blood Urea Nitrogen 20 mg/dL (9-20); Calcium 9.2 mg/dL (8.4-10.2); Hemolysis Index 22
--- NOTE | 2021-03-07 00:10 | Emergency Department Report ---
ED Psych HPI - General Chief Complaint: Psych Stated Complaint: MH EVAL Time Seen by Provider: 03/07/21 00:06 Source: patient Mode of arrival: Ambulatory - History of Present Illness Initial Comments: Patient is 40 years old male with history of primary schizophrenia. Patient pr esented to the ER stating that he is hearing voices asking him to kill himself. Patient does not have a specific plan. Patient denied any homicidal ideation. Patient denied visual hallucination. MD Complaint: suicidal ideation -: days(s) Associated Psychiatric Symptoms: suicidal ideation, racing thoughts, auditory hallucinations Quality: constant Improves With: none Associated Symptoms: denies other symptoms Treatments Prior to Arrival: none If Self Harm: admits thoughts of - Related Data Home Medications Medication Instructions Recorded Confirmed Last Taken Vitamin E 100 unit PO QDAY 08/02/19 08/02/19 Unknown diphenhydrAMINE [Benadryl CAP] 50 mg PO QDAY 08/02/19 08/02/19 Unknown haloperidoL [Haldol] 5 mg PO BID 08/02/19 08/02/19 Unknown Previous Rx's Medication Instructions Recorded Last Taken Type Benztropine [Cogentin] 1 mg PO BID 30 Days #60 tab 10/13/20 Unknown Rx OLANzapine [ZyPREXA] 5 mg PO QDAY #30 tablet 03/07/21 Unknown Rx buPROPion [Wellbutrin] 100 mg PO BID #60 tab 03/07/21 Unknown Rx Allergies Allergy/AdvReac Type Severity Reaction Status Date / Time risperidone [From Risperdal] Allergy Shortness Verified 10/16/20 10:32 of Breath tomato Allergy Rash Verified 10/16/20 10:32 ED Review of Systems ROS: Stated complaint: MH EVAL Other details as noted in HPI Comment: All other systems reviewed and negative Constitutional: denies: chills, fever Respiratory: denies: cough, shortness of breath, SOB with exertion Cardiovascular: denies: chest pain, palpitations Gastrointestinal: denies: abdominal pain Musculoskeletal: denies: back pain Neurological: denies: headache, weakness, numbness, paresthesias Psychiatric: auditory hallucinations, suicidal thoughts. denies: homicidal thoughts ED Past Medical Hx - Past Medical History Previous Medical History?: Yes Hx Renal Disease: Yes (Kidney Stones) Hx Sickle Cell Disease: Yes (sickle cell trait) Hx Kidney Stones: Yes Hx Psychiatric Treatment: Yes (Depression and Schizophrenia) - Surgical History Past Surgical History?: Yes Additional Surgical History: CIRCUMCISION - Social History Smoking Status: Current Every Day Smoker (1/3 pack/day) Substance Use Type: None (Denies illicit drug use), Alcohol (Frequently) - Medications Home Medications: Home Medications Medication Instructions Recorded Confirmed Last Taken Type Vitamin E 100 unit PO QDAY 08/02/19 08/02/19 Unknown History diphenhydrAMINE [Benadryl CAP] 50 mg PO QDAY 08/02/19 08/02/19 Unknown History haloperidoL [Haldol] 5 mg PO BID 08/02/19 08/02/19 Unknown History Benztropine [Cogentin] 1 mg PO BID 30 Days #60 tab 10/13/20 Unknown Rx OLANzapine [ZyPREXA] 5 mg PO QDAY #30 tablet 03/07/21 Unknown Rx buPROPion [Wellbutrin] 100 mg PO BID #60 tab 03/07/21 Unknown Rx ED Physical Exam - General Limitations: No Limitations General appearance: alert, in no apparent distress, anxious - Head Head exam: Present: atraumatic, normocephalic, normal inspection - Eye Eye exam: Present: normal appearance, PERRL - ENT ENT exam: Present: normal exam, normal orophraynx, mucous membranes moist - Neck Neck exam: Present: normal inspection, full ROM. Absent: tenderness, meningismus - Respiratory Respiratory exam: Present: normal lung sounds bilaterally - Cardiovascular Cardiovascular Exam: Present: regular rate, normal rhythm, normal heart sounds - GI/Abdominal GI/Abdominal exam: Present: soft, normal bowel sounds. Absent: distended, tenderness, guarding, rebound, rigid, organomegaly, mass, bruit, pulsatile mass, hernia - Extremities Exam Extremities exam: Present: normal inspection, full ROM, normal capillary refill. Absent: tenderness, pedal edema, calf tenderness - Back Exam Back exam: Present: normal inspection, full ROM. Absent: CVA tenderness (R), CVA tenderness (L) - Neurological Exam Neurological exam: Present: alert, oriented X3, CN II-XII intact, normal gait, reflexes normal. Absent: motor sensory deficit - Psychiatric Psychiatric exam: Present: normal mood - Skin Skin exam: Present: warm, intact, normal color ED Course Vital Signs 03/06/21 03/07/21 21:45 09:20 Temperature 97.9 F 97.6 F Pulse Rate 89 66 Respiratory 16 18 Rate Blood Pressure 125/63 Blood Pressure 110/67 [Left] O2 Sat by Pulse 99 97 Oximetry ED Medical Decision Making - Lab Data Result diagrams: 03/06/21 21:48 03/06/21 21:48 Critical care attestation.: If time is entered above; I have spent that time in minutes in the direct care of this critically ill patient, excluding procedure time. ED Disposition Clinical Impression: Schizophrenia, Auditory hallucinations Disposition: DC-01 TO HOME OR SELFCARE Is pt being admited?: No Condition: Stable Instructions: Schizophrenia, Managing Schizophrenia Additional Instructions: Please take all medications as prescribed. Follow-up in 7 to 14 days with the following outpatient resources. Return to the emergency department should you develop thoughts of hurting yourself or others or for any other new concerns. OUTPATIENT MENTAL HEALTH RESOURCES [facility], [facility] Dallas Johnson MD: [address] [facility] [address] [place] [address] [place] [address] [place] [facility]: [employer] [address] [place] [address] [place] [address] [phone] [facility]: [facility] Healthcare: [address] [place] [address] [address] [place] [address] [place] [address] [facility] [address] [place] [facility]: Barrington Kurtz MD: [id number] [facility] [address] [facility] [id number] [facility]: [address] [place], [place] [id number] [phone] [place] CRISIS AND ACCESS LINE: Prescriptions: buPROPion [Wellbutrin] 100 mg PO BID #60 tab OLANzapine [ZyPREXA] 5 mg PO QDAY #30 tablet Referrals: PRIMARY CAREMD [Primary Care Provider] - 3-5 Days
[2021-03-07 01:10] LABS: Bilirubin,Urine NEG (Negative); Blood,Urine SM (Negative); Color,Urine Yellow (Yellow); Protein,Urine <15 mg/dL mg/dL (Negative)
[2021-03-07 01:38] LABS: Amphetamine Screen,Urine Negative; Benzodiazepines Screen,Urine Negative; Cannabinoid Screen,Urine Negative; Methadone Screen,Urine Negative; Opiate Screen,Urine Negative
[2021-03-07 01:50] LABS: Cocaine Screen,Urine Positive
[2021-03-07 02:07] LABS: Anisocytosis 1+; Platelet Estimate Consistent w Auto; Total Cells Counted 100
[2021-03-07 09:30] VITALS: BP 110/67
--- NOTE | 2021-03-07 10:32 | Event Note ---
Date: 03/07/21 40-year-old male with a history of schizophrenia who presented with command auditory hallucinations and suicidal ideation. He was seen by my colleague and medically cleared for psychiatric evaluation and placement. Labs are significant for UDS positive for cocaine. No acute events overnight and vital signs are stable. Currently awaiting mental health/psychiatry recommendations.
--- NOTE | 2021-03-07 10:45 | Consultation ---
History of Present Illness - Reason for Consult Consult date: 03/07/21 Reason for consult: hallucinations, SI - History of Present Psychiatric Illness Per ER Note: Patient is 40 years old male with history of primary schizophrenia. Patient presented to the ER stating that he is hearing voices asking him to kill himself. Patient does not have a specific plan. Patient denied any homicidal ideation. Patient denied visual hallucination. Pardeep Perdomo is a 40y/o male patient who was seen today who says he came to the ER because he was "feeling paranoid." He says he was using "marijuana dipped in embalming fluid." He says at time he started "hearing voices telling him to do crazy things and hurt himself." The patient is also positive for cocaine, but he denies. The patient says he's been off his meds for about a month. He says he was on zyprexa and wellbutrin. When asking the patient why he had been off his meds. He says "I didn't have no ID or armband to pick them up." He says "so I couldn't get them." When asking the patient why didn't he have an ID, he becomes irritable, and says "that's stupid. It's lost. It's just out there. I don't kn ow." He denies SI/HI or any fear of endangerment. When asking was he still hearing the voices, he replies "not at the moment." He also denies seeing outpatient psych in a while. He says "not on a regular basis." PAST PSYCHIATRIC HISTORY Diagnoses: Paranoid Suicide attempts or Self-harm behavior: None reported Prior psychiatric hospitalizations: Yes Substance Abuse history: None reported Previous psychiatric medications tried: Zyprexa, Cogentin and Wellbutrin Outpatient treatment: None reported PAST MEDICAL HISTORY: None reported Family Psychiatric History: None reported or documented SOCIAL HISTORY Marital Status: Single Living Arrangements: Homeless Employment Status: Unemployed Access to guns/weapons: None reported Education: High school History of Abuse: None report Legal History: None reported REVIEW OF SYSTEMS Constitutional: Negative for weight loss ENT: Negative for stridor Respiratory: Negative for cough or hemoptysis All other systems reviewed and are negative MENTAL STATUS EXAMINATION General Appearance and Behavior: Age appropriate, fair hygiene, wearing appropriate clothes, good eye contact, cooperative with questioning, irritable at times. 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 PSYCHOTHERAPY: Supportive psychotherapy provided MEDICAL: Per primary team DELIRIUM PRECAUTIONS: Please re-orient patient frequently, keep lights on during the day, and minimize benzodiazepines and opiates as these medications could worsen patient's confusion. 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 FOLLOW-UP: Will sign off Thank you for the consult. Please contact with any questions and/or concerns. Case discussed with Dr. Cervantes who agrees with current disposition Medications and Allergies Allergies Allergy/AdvReac Type Severity Reaction Status Date / Time risperidone [From Risperdal] Allergy Shortness Verified 10/16/20 10:32 of Breath tomato Allergy Rash Verified 10/16/20 10:32 Home Medications Medication Instructions Recorded Confirmed Last Taken Type Vitamin E 100 unit PO QDAY 08/02/19 08/02/19 Unknown History diphenhydrAMINE [Benadryl CAP] 50 mg PO QDAY 08/02/19 08/02/19 Unknown History haloperidoL [Haldol] 5 mg PO BID 08/02/19 08/02/19 Unknown History Benztropine [Cogentin] 1 mg PO BID 30 Days #60 tab 10/13/20 Unknown Rx OLANzapine [ZyPREXA] 5 mg PO QDAY #30 tablet 03/07/21 Unknown Rx buPROPion [Wellbutrin] 100 mg PO BID #60 tab 03/07/21 Unknown Rx Mental Status Exam - Vital signs Last Vital Signs Temp 97.6 F 03/07/21 09:20 Pulse 66 03/07/21 09:20 Resp 18 03/07/21 09:20 BP 110/67 03/07/21 09:20 Pulse Ox 97 03/07/21 09:20 Results Result Diagrams: 03/06/21 21:48 03/06/21 21:48 Abnormal lab results 03/06/21 03/06/21 03/06/21 Range/Units 21:48 21:48 21:48 MCHC 35 H (32-34) % Lymphocytes % (Manual) 36.0 H (13.4-35.0) % Monocytes % (Manual) 10.0 H (0.0-7.3) % Eosinophils % (Manual) 8.0 H (0.0-4.3) % Eosinophils # (Manual) 0.5 H (0.0-0.4) K/mm3 Salicylates < 0.3 L (2.8-20.0) mg/dL Acetaminophen 5.0 L (10.0-30.0) ug/mL All other labs normal.
== END 2021-03-07 14:39 | disposition home or self-care (01) ==
LOC: ED 21:00
DX: F20.9 Schizophrenia, unspecified (principal); F32.9 Major depressive disorder, single episode, unspecified; Z20.822 Contact with and (suspected) exposure to COVID-19; F17.200 Nicotine dependence, unspecified, uncomplicated; Z87.442 Personal history of urinary calculi; Z98.890 Other specified postprocedural states; Z79.899 Other long term (current) drug therapy; Z88.8 Allergy status to other drugs, medicaments and biological substances; Z91.018 Allergy to other foods
CPT/HCPCS: 36415; 80048; 80307; 81001; 85007; 85025; 99284; U0003; 80320; G0480

== ENCOUNTER 2021-03-09 21:45 | Emergency (ER) | payer SELFPAY ==
[2021-03-10 01:05] LABS: Hematocrit 42.3 % (35.5-45.6); Hemoglobin 14.1 gm/dl (11.8-15.2); Mean Corpuscular HGB Conc 33 % (32-34); Mean Corpuscular Volume 92 fl (84-94); Platelet Count 221 K/mm3 (140-440); Red Blood Count 4.62 M/mm3 (3.65-5.03); Red Cell Distribution Width 15.2 % (13.2-15.2)
[2021-03-10 01:22] LABS: BUN/Creatinine Ratio 18; Blood Urea Nitrogen 18 mg/dL (9-20); Hemolysis Index 3
[2021-03-10 02:01] LABS: Anisocytosis 1+; Total Cells Counted 100
[2021-03-10 05:47] LABS: Bilirubin,Urine NEG (Negative); Blood,Urine NEG (Negative); Color,Urine Yellow (Yellow); Protein,Urine <15 mg/dL mg/dL (Negative)
[2021-03-10 05:55] LABS: Amphetamine Screen,Urine Negative; Benzodiazepines Screen,Urine Negative; Cannabinoid Screen,Urine Negative; Cocaine Screen,Urine Negative; Methadone Screen,Urine Negative; Opiate Screen,Urine Negative
--- NOTE | 2021-03-10 06:55 | Emergency Department Report ---
HPI - General Chief Complaint: Psych Time Seen by Provider: 03/10/21 05:59 - HPI HPI: This is a 40-year-old -[place] male presents to the emergency department for a mental health evaluation. The patient has a history of schizophrenia. He presents with the complaint of suicidal ideations without any particular plan. The patient was just here, discharged few days ago, for similar complaints. Patient says that he has not yet followed up with any of the outpatient behavioral health resources, but says that he is compliant with taking his Zyp rexa. Overall he just has the complaint of some fatigue. He denies any current hallucinations or homicidal ideations. ED Past Medical Hx - Past Medical History Previous Medical History?: Yes Hx Renal Disease: Yes (Kidney Stones) Hx Sickle Cell Disease: Yes (sickle cell trait) Hx Kidney Stones: Yes Hx Psychiatric Treatment: Yes (Depression and Schizophrenia) - Surgical History Past Surgical History?: Yes Additional Surgical History: CIRCUMCISION - Social History Smoking Status: Current Every Day Smoker Substance Use Type: Alcohol, Marijuana - Medications Home Medications: Home Medications Medication Instructions Recorded Confirmed Last Taken Type Vitamin E 100 unit PO QDAY 08/02/19 08/02/19 Unknown History diphenhydrAMINE [Benadryl CAP] 50 mg PO QDAY 08/02/19 08/02/19 Unknown History haloperidoL [Haldol] 5 mg PO BID 08/02/19 08/02/19 Unknown History Benztropine [Cogentin] 1 mg PO BID 30 Days #60 tab 10/13/20 Unknown Rx OLANzapine [ZyPREXA] 5 mg PO QDAY #30 tablet 03/07/21 Unknown Rx buPROPion [Wellbutrin] 100 mg PO BID #60 tab 03/07/21 Unknown Rx ED Review of Systems ROS: Stated complaint: MH EVLA/DEPRESSION Other details as noted in HPI Comment: All other systems reviewed and negative Constitutional: other (Fatigue). denies: fever Eyes: denies: eye pain, vision change ENT: denies: ear pain, throat pain Respiratory: denies: cough, shortness of breath Cardiovascular: denies: chest pain, palpitations Gastrointestinal: denies: abdominal pain, vomiting Musculoskeletal: denies: back pain, arthralgia Neurological: denies: headache, weakness Psychiatric: suicidal thoughts. denies: auditory hallucinations, visual hallucinations, homicidal thoughts Physical Exam - Physical Exam Vital Signs: Vital Signs 03/10/21 03/10/21 00:43 06:06 Temperature 97.9 F Pulse Rate 79 Respiratory 18 18 Rate Blood Pressure 109/59 O2 Sat by Pulse 98 100 Oximetry Physical Exam: GENERAL: The patient is well-developed well-nourished. HENT: Normocephalic. Atraumatic. Patient has moist mucous membranes. EYES: Extraocular motions are intact. NECK: Supple. Trachea is midline. CHEST/LUNGS: Clear to auscultation. There is no respiratory distress noted. HEART/CARDIOVASCULAR: Regular. There is no tachycardia. There is no murmur. ABDOMEN: Abdomen is soft, nontender. Patient has normal bowel sounds. SKIN: Skin is warm and dry. NEURO: The patient is awake, alert, and oriented. The patient is cooperative. The patient has no focal neurologic deficits. Normal speech. MUSCULOSKELETAL: There is no tenderness or deformity. There is no limitation range of motion. ED Course Vital Signs 03/10/21 03/10/21 00:43 06:06 Temperature 97.9 F Pulse Rate 79 Respiratory 18 18 Rate Blood Pressure 109/59 O2 Sat by Pulse 98 100 Oximetry ED Medical Decision Making - Lab Data Result diagrams: 03/10/21 00:44 03/10/21 00:44 Lab Results 03/10/21 03/10/21 03/10/21 Range/Units 00:44 00:44 00:44 WBC (4.5-11.0) K/mm3 RBC (3.65-5.03) M/mm3 Hgb (11.8-15.2) gm/dl Hct (35.5-45.6) % MCV (84-94) fl MCH (28-32) pg MCHC (32-34) % RDW (13.2-15.2) % Plt Count (140-440) K/mm3 Add Manual Diff Total Counted Seg Neuts % (Manual) (40.0-70.0) % Lymphocytes % (Manual) (13.4-35.0) % Monocytes % (Manual) (0.0-7.3) % Eosinophils % (Manual) (0.0-4.3) % Nucleated RBC % Seg Neutrophils # Man (1.8-7.7) K/mm3 Band Neutrophils # K/mm3 Lymphocytes # (Manual) (1.2-5.4) K/mm3 Abs React Lymphs (Man) K/mm3 Monocytes # (Manual) (0.0-0.8) K/mm3 Eosinophils # (Manual) (0.0-0.4) K/mm3 Basophils # (Manual) (0.0-0.1) K/mm3 Metamyelocytes # K/mm3 Myelocytes # K/mm3 Promyelocytes # K/mm3 Blast Cells # K/mm3 WBC Morphology Hypersegmented Neuts Hyposegmented Neuts Hypogranular Neuts Smudge Cells Toxic Granulation Toxic Vacuolation Dohle Bodies Pelger-Huet Anomaly Padmini Rods Platelet Estimate Clumped Platelets Plt Clumps, EDTA Large Platelets Giant Platelets Platelet Satelliting Plt Morphology Comment RBC Morphology Dimorphic RBCs Polychromasia Hypochromasia Poikilocytosis Anisocytosis Microcytosis Macrocytosis Spherocytes Pappenheimer Bodies Sickle Cells Target Cells Tear Drop Cells Ovalocytes Helmet Cells Gilbert-[place] Bodies [place] Rings Ioana Cells Bite Cells Crenated Cell Elliptocytes Acanthocytes (Spur) Rouleaux Hemoglobin C Crystals Schistocytes Malaria parasites Anoop Bodies Hem Pathologist Commnt Sodium 142 (137-145) mmol/L Potassium 4.1 (3.6-5.0) mmol/L Chloride 105.0 (98-107) mmol/L Carbon Dioxide 23 (22-30) mmol/L Anion Gap 18 mmol/L BUN 18 (9-20) mg/dL Creatinine 1.0 (0.8-1.3) mg/dL Estimated GFR > 60 ml/min BUN/Creatinine Ratio 18 % Glucose 104 H (75-100) mg/dL Calcium 9.0 (8.4-10.2) mg/dL Urine Color (Yellow) Urine Turbidity (Clear) Urine pH (5.0-7.0) Ur Specific [place] (1.003-1.030) Urine Protein (Negative) mg/dL Urine Glucose (UA) (Negative) mg/dL Urine Ketones (Negative) mg/dL Urine Blood (Negative) Urine Nitrite (Negative) Urine Bilirubin (Negative) Urine Urobilinogen (<2.0) mg/dL Ur Leukocyte Esterase (Negative) Urine WBC (Auto) (0.0-6.0) /HPF Urine RBC (Auto) (0.0-6.0) /HPF U Epithel Cells (Auto) (0-13.0) /HPF Salicylates < 0.3 L (2.8-20.0) mg/dL Urine Opiates Screen Urine Methadone Screen Acetaminophen < 5.0 L (10.0-30.0) ug/mL Ur Barbiturates Screen Ur Phencyclidine Scrn Ur Amphetamines Screen U Benzodiazepines Scrn Urine Cocaine Screen U Marijuana (THC) Screen Drugs of Abuse Note Plasma/Serum Alcohol (0-0.07) % 03/10/21 03/10/21 03/10/21 Range/Units 00:44 00:44 05:38 WBC 7.1 (4.5-11.0) K/mm3 RBC 4.62 (3.65-5.03) M/mm3 Hgb 14.1 (11.8-15.2) gm/dl Hct 42.3 (35.5-45.6) % MCV 92 (84-94) fl MCH 31 (28-32) pg MCHC 33 (32-34) % RDW 15.2 (13.2-15.2) % Plt Count 221 (140-440) K/mm3 Add Manual Diff Complete Total Counted 100 Seg Neuts % (Manual) 52.0 (40.0-70.0) % Lymphocytes % (Manual) 42.0 H (13.4-35.0) % Monocytes % (Manual) 2.0 (0.0-7.3) % Eosinophils % (Manual) 4.0 (0.0-4.3) % Nucleated RBC % Not Reportable Seg Neutrophils # Man 3.7 (1.8-7.7) K/mm3 Band Neutrophils # 0.0 K/mm3 Lymphocytes # (Manual) 3.0 (1.2-5.4) K/mm3 Abs React Lymphs (Man) 0.0 K/mm3 Monocytes # (Manual) 0.1 (0.0-0.8) K/mm3 Eosinophils # (Manual) 0.3 (0.0-0.4) K/mm3 Basophils # (Manual) 0.0 (0.0-0.1) K/mm3 Metamyelocytes # 0.0 K/mm3 Myelocytes # 0.0 K/mm3 Promyelocytes # 0.0 K/mm3 Blast Cells # 0.0 K/mm3 WBC Morphology Not Reportable Hypersegmented Neuts Not Reportable Hyposegmented Neuts Not Reportable Hypogranular Neuts Not Reportable Smudge Cells Not Reportable Toxic Granulation Not Reportable Toxic Vacuolation Not Reportable Dohle Bodies Not Reportable Pelger-Huet Anomaly Not Reportable Padmini Rods Not Reportable Platelet Estimate Not Reportable Clumped Platelets Not Reportable Plt Clumps, EDTA Not Reportable Large Platelets Not Reportable Giant Platelets Not Reportable Platelet Satelliting Not Reportable Plt Morphology Comment Not Reportable RBC Morphology Not Reportable Dimorphic RBCs Not Reportable Polychromasia Not Reportable Hypochromasia Not Reportable Poikilocytosis Not Reportable Anisocytosis 1+ Microcytosis Rare Macrocytosis Not Reportable Spherocytes Not Reportable Pappenheimer Bodies Not Reportable Sickle Cells Not Reportable Target Cells Not Reportable Tear Drop Cells Not Reportable Ovalocytes Not Reportable Helmet Cells Not Reportable Gilbert-[place] Bodies Not Reportable [place] Rings Not Reportable [place] Cells Not Reportable Bite Cells Not Reportable Crenated Cell Not Reportable Elliptocytes Not Reportable Acanthocytes (Spur) Not Reportable Rouleaux Not Reportable Hemoglobin C Crystals Not Reportable Schistocytes Not Reportable Malaria parasites Not Reportable Anoop Bodies Not Reportable Hem Pathologist Commnt No Sodium (137-145) mmol/L Potassium (3.6-5.0) mmol/L Chloride (98-107) mmol/L Carbon Dioxide (22-30) mmol/L Anion Gap mmol/L BUN (9-20) mg/dL Creatinine (0.8-1.3) mg/dL Estimated GFR ml/min BUN/Creatinine Ratio % Glucose (75-100) mg/dL Calcium (8.4-10.2) mg/dL Urine Color Yellow (Yellow) Urine Turbidity Clear (Clear) Urine pH 5.0 (5.0-7.0) Ur Specific [place] 1.016 (1.003-1.030) Urine Protein <15 mg/dl (Negative) mg/dL Urine Glucose (UA) Neg (Negative) mg/dL Urine Ketones Neg (Negative) mg/dL Urine Blood Neg (Negative) Urine Nitrite Neg (Negative) Urine Bilirubin Neg (Negative) Urine Urobilinogen 2.0 (<2.0) mg/dL Ur Leukocyte Esterase Neg (Negative) Urine WBC (Auto) 1.0 (0.0-6.0) /HPF Urine RBC (Auto) 3.0 (0.0-6.0) /HPF U Epithel Cells (Auto) 1.0 (0-13.0) /HPF Salicylates (2.8-20.0) mg/dL Urine Opiates Screen Urine Methadone Screen Acetaminophen (10.0-30.0) ug/mL Ur Barbiturates Screen Ur Phencyclidine Scrn Ur Amphetamines Screen U Benzodiazepines Scrn Urine Cocaine Screen U Marijuana (THC) Screen Drugs of Abuse Note Plasma/Serum Alcohol < 0.01 (0-0.07) % 03/10/21 Range/Units 05:38 WBC (4.5-11.0) K/mm3 RBC (3.65-5.03) M/mm3 Hgb (11.8-15.2) gm/dl Hct (35.5-45.6) % MCV (84-94) fl MCH (28-32) pg MCHC (32-34) % RDW (13.2-15.2) % Plt Count (140-440) K/mm3 Add Manual Diff Total Counted Seg Neuts % (Manual) (40.0-70.0) % Lymphocytes % (Manual) (13.4-35.0) % Monocytes % (Manual) (0.0-7.3) % Eosinophils % (Manual) (0.0-4.3) % Nucleated RBC % Seg Neutrophils # Man (1.8-7.7) K/mm3 Band Neutrophils # K/mm3 Lymphocytes # (Manual) (1.2-5.4) K/mm3 Abs React Lymphs (Man) K/mm3 Monocytes # (Manual) (0.0-0.8) K/mm3 Eosinophils # (Manual) (0.0-0.4) K/mm3 Basophils # (Manual) (0.0-0.1) K/mm3 Metamyelocytes # K/mm3 Myelocytes # K/mm3 Promyelocytes # K/mm3 Blast Cells # K/mm3 WBC Morphology Hypersegmented Neuts Hyposegmented Neuts Hypogranular Neuts Smudge Cells Toxic Granulation Toxic Vacuolation Dohle Bodies Pelger-Huet Anomaly Padmini Rods Platelet Estimate Clumped Platelets Plt Clumps, EDTA Large Platelets Giant Platelets Platelet Satelliting Plt Morphology Comment RBC Morphology Dimorphic RBCs Polychromasia Hypochromasia Poikilocytosis Anisocytosis Microcytosis Macrocytosis Spherocytes Pappenheimer Bodies Sickle Cells Target Cells Tear Drop Cells Ovalocytes Helmet Cells Gilbert-[place] Bodies [place] Rings Ioana Cells Bite Cells Crenated Cell Elliptocytes Acanthocytes (Spur) Rouleaux Hemoglobin C Crystals Schistocytes Malaria parasites Anoop Bodies Hem Pathologist Commnt Sodium (137-145) mmol/L Potassium (3.6-5.0) mmol/L Chloride (98-107) mmol/L Carbon Dioxide (22-30) mmol/L Anion Gap mmol/L BUN (9-20) mg/dL Creatinine (0.8-1.3) mg/dL Estimated GFR ml/min BUN/Creatinine Ratio % Glucose (75-100) mg/dL Calcium (8.4-10.2) mg/dL Urine Color (Yellow) Urine Turbidity (Clear) Urine pH (5.0-7.0) Ur Specific [place] (1.003-1.030) Urine Protein (Negative) mg/dL Urine Glucose (UA) (Negative) mg/dL Urine Ketones (Negative) mg/dL Urine Blood (Negative) Urine Nitrite (Negative) Urine Bilirubin (Negative) Urine Urobilinogen (<2.0) mg/dL Ur Leukocyte Esterase (Negative) Urine WBC (Auto) (0.0-6.0) /HPF Urine RBC (Auto) (0.0-6.0) /HPF U Epithel Cells (Auto) (0-13.0) /HPF Salicylates (2.8-20.0) mg/dL Urine Opiates Screen Negative Urine Methadone Screen Negative Acetaminophen (10.0-30.0) ug/mL Ur Barbiturates Screen Negative Ur Phencyclidine Scrn Negative Ur Amphetamines Screen Negative U Benzodiazepines Scrn Negative Urine Cocaine Screen Negative U Marijuana (THC) Screen Negative Drugs of Abuse Note Disclamer Plasma/Serum Alcohol (0-0.07) % - Medical Decision Making This patient presents to the emergency department for a mental health e valuation. Initially, through triage, the patient stated that he had suicidal ideations. I had to wake the patient up for evaluation. He was easily arousable, but was not forthcoming or significantly cooperative. He mumbled something in agreement and asked if he was suicidal but does not have any particular plan. He denies any homicidal ideations or hallucinations. However, given the initial complaint of suicidal ideations, the patient was placed on a 1013 and an ED hold. Labs have been unremarkable including CBC, metabolic panel, blood alcohol level, urinalysis and UDS. Vital signs reassuring throughout his ED course thus far. He will be seen by the psychiatric team for assistance with further disposition, but I would consider this patient medically cleared. Critical Care Time: No Critical care attestation.: If time is entered above; I have spent that time in minutes in the direct care of this critically ill patient, excluding procedure time. ED Disposition Clinical Impression: Low self esteem, Schizophrenia Disposition: DC-01 TO HOME OR SELFCARE Is pt being admited?: No Condition: Stable Additional Instructions: Return to the emergency department should you develop worsening symptoms, inability to tolerate food or liquids, high fever or any other concerns Referrals: [facility] [Outside] - 3-5 Days PRIMARY CARE, [Primary Care Provider] - 3-5 Days
[2021-03-10 08:18] VITALS: BP 116/50
--- NOTE | 2021-03-10 09:28 | Consultation ---
History of Present Illness - Reason for Consult Consult date: 03/10/21 Reason for consult: SI - History of Present Psychiatric Illness Pardeep Perdomo is a 40y/o male patient I seen earlier this week. He is sleeping and is reluctant to cooperate. Upon his evaluation, he states he came to the hospital for "poor self esteem." When asking the patient why did he feel that was an emergency, he replies "I don't know. My self esteem is just poor." He is irritable at my questioning. He denies SI/HI or hallucinations at present. He says "I'm tired of yall asking me the same stuff." When asking about any drug or alcohol use, the patient replies "I'm not sure if I do or not." When asking him why was he not sure if he did drugs, he becomes upset, and states "I don't know if I did. You can believe me or not." PAST PSYCHIATRIC HISTORY Diagnoses: Paranoid Suicide attempts or Self-harm behavior: None reported Prior psychiatric hospitalizations: Yes Substance Abuse history: None reported Previous psychiatric medications tried: Zyprexa, Cogentin and Wellbutrin Outpatient treatment: None reported PAST MEDICAL HISTORY: None reported Family Psychiatric History: None reported or documented SOCIAL HISTORY Marital Status: Single Living Arrangements: Homeless Employment Status: Unemployed Access to guns/weapons: None reported Education: High school History of Abuse: None report Legal History: None reported REVIEW OF SYSTEMS Constitutional: Negative for weight loss ENT: Negative for stridor Respiratory: Negative for cough or hemoptysis All other systems reviewed and are negative MENTAL STATUS EXAMINATION General Appearance and Behavior: Age appropriate, fair hygiene, wearing appropriate clothes, reluctant to cooperative with questioning, irritable at times. 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 PSYCHOTHERAPY: Supportive psychotherapy provided MEDICAL: Per primary team DELIRIUM PRECAUTIONS: Please re-orient patient frequently, keep lights on during the day, and minimize benzodiazepines and opiates as these medications could worsen patient's confusion. INDUSTRIAL ELECTRICAL TECHNICIAN: Defer to primary DISPOSITION: Do Not Recommend acute inpatient psychiatric hospitalization at th is time. FOLLOW-UP: Will sign off Thank you for the consult. Please contact with any questions and/or concerns. Case discussed with Dr. Cervantes who agrees with current disposition Medications and Allergies Allergies Allergy/AdvReac Type Severity Reaction Status Date / Time risperidone [From Risperdal] Allergy Shortness Verified 10/16/20 10:32 of Breath tomato Allergy Rash Verified 10/16/20 10:32 Home Medications Medication Instructions Recorded Confirmed Last Taken Type Vitamin E 100 unit PO QDAY 08/02/19 08/02/19 Unknown History diphenhydrAMINE [Benadryl CAP] 50 mg PO QDAY 08/02/19 08/02/19 Unknown History haloperidoL [Haldol] 5 mg PO BID 08/02/19 08/02/19 Unknown History Benztropine [Cogentin] 1 mg PO BID 30 Days #60 tab 10/13/20 Unknown Rx OLANzapine [ZyPREXA] 5 mg PO QDAY #30 tablet 03/07/21 Unknown Rx buPROPion [Wellbutrin] 100 mg PO BID #60 tab 03/07/21 Unknown Rx Mental Status Exam - Vital signs Last Vital Signs Temp 98.2 F 03/10/21 08:18 Pulse 72 03/10/21 08:18 Resp 18 03/10/21 08:54 BP 116/50 03/10/21 08:18 Pulse Ox 99 03/10/21 08:54 Results Result Diagrams: 03/10/21 00:44 03/10/21 00:44 Abnormal lab results 03/10/21 03/10/21 03/10/21 Range/Units 00:44 00:44 00:44 Lymphocytes % (Manual) (13.4-35.0) % Glucose 104 H (75-100) mg/dL Salicylates < 0.3 L (2.8-20.0) mg/dL Acetaminophen < 5.0 L (10.0-30.0) ug/mL 03/10/21 Range/Units 00:44 Lymphocytes % (Manual) 42.0 H (13.4-35.0) % Glucose (75-100) mg/dL Salicylates (2.8-20.0) mg/dL Acetaminophen (10.0-30.0) ug/mL All other labs normal.
== END 2021-03-10 10:51 | disposition home or self-care (01) ==
LOC: ED 21:45
DX: F20.9 Schizophrenia, unspecified (principal); R45.81 Low self-esteem; F32.9 Major depressive disorder, single episode, unspecified; F17.200 Nicotine dependence, unspecified, uncomplicated; F12.90 Cannabis use, unspecified, uncomplicated; Z98.890 Other specified postprocedural states; Z87.442 Personal history of urinary calculi; Z79.899 Other long term (current) drug therapy; Z91.018 Allergy to other foods; Z88.8 Allergy status to other drugs, medicaments and biological substances
CPT/HCPCS: 36415; 80048; 80307; 80320; 81001; 85007; 85025; 99284; G0480